=== PATIENT | female | born 1945 | race African-American/Black ===

== ENCOUNTER 2017-05-02 03:06 | Inpatient (IN) | payer MEDICARE, MEDICAID ==
[~2017-05-02] VITALS: Ht 167.6 cm; Wt 79.4 kg
[2017-05-02] VITALS (7 sets, daily range): BP systolic 109–141; BP diastolic 44–73
[2017-05-02] MEDS ORDERED: PREDNISOLO15 MG/5 M1 ORAL (03:19)
[2017-05-02] MEDS ORDERED: LUMIGAN2.5 ML BOTH EYES (03:19)
[2017-05-02] MEDS ORDERED: CYMBALTA30 MG ORAL (03:19)
[2017-05-02] MEDS ORDERED: ATORVASTATIN CA10 MG ORAL (03:19)
[2017-05-02] MEDS ORDERED: HYDROmorphone 1mg/ml Carpuject IVP ONE (03:45)
[2017-05-02 04:11] LABS: EOSINOPHILS % (AUTO) 1.5 % (0.0-3.0); HEMATOCRIT 43.9 % (37.0-47.0); LYMPHOCYTES % (AUTO) 23.9 % (20.0-45.0); MEAN CORPUSCULAR VOLUME 90 FL (80-99); MONOCYTES % (AUTO) 7.1 % (1.0-10.0); NEUTROPHILS % (AUTO) 66.5 % (45.0-75.0); PLATELET COUNT 315 K/UL (150-450); RED BLOOD COUNT 4.89 M/UL (4.20-5.40); RED CELL DISTRIBUTION WIDTH 13.2 % (11.6-14.8); WHITE BLOOD COUNT 7.6 K/UL (4.8-10.8)
[2017-05-02 04:28] LABS: ANION GAP 4 mmol/L (5-15); BLOOD UREA NITROGEN 16 mg/dL (7-18); CALCIUM 9.1 MG/DL (8.5-10.1); CARBON DIOXIDE 30 MMOL/L (21-32); CHLORIDE 107 MMOL/L (98-107); CREATININE 0.8 MG/DL (0.55-1.30); POTASSIUM 3.7 MMOL/L (3.5-5.1); SODIUM 141 MMOL/L (136-145)
[2017-05-02 04:48] LABS: ALANINE AMINOTRANSFERASE 25 U/L (12-78); ALBUMIN 3.2 G/DL (3.4-5.0); ALBUMIN/GLOBULIN RATIO 0.9 (1.0-2.7); ALKALINE PHOSPHATASE 101 U/L (46-116); ASPARTATE AMINO TRANSFERASE 12 U/L (15-37); BILIRUBIN,TOTAL 0.4 MG/DL (0.2-1.0); CKMB 1.6 NG/ML (0.0-3.6); CREATINE KINASE 73 U/L (26-308)
--- NOTE | 2017-05-02 05:02 | Emergency Room Report ---
History of Present Illness General Chief Complaint: Chest Pain Source: Patient Present Illness HPI This is a 71-year-old female with a history of degenerative disc disease in her lower back. She's taking hydrocodone. She presents with chief complaint of chest pain. Onset was about 3 hours prior to arrival. She was in bed when she got up and developed left-sided pain. No radiation. No diaphoresis. No nausea no vomiting. Pain is a 9/10. She called 911. No relief with nitroglycerin or aspirin. No exertional component. Allergies: Coded Allergies: ACETAMINOPHEN (Unverified Allergy, Unknown, 05/02/17) HYDROCODONE (Unverified Allergy, Unknown, 05/02/17) MORPHINE (Unverified Allergy, Unknown, 05/02/17) Patient History Past Medical History: see triage record, old chart reviewed, HTN Past Surgical History: other Pertinent Family History: none Social History: Denies: smoking Now: No Immunizations: other Reviewed Nursing Documentation: PMH: Agreed, PSxH: Agreed Nursing Documentation-PMH Past Medical History: No History, Except For Hx Hypertension: Yes Hx Asthma: Yes Review of Systems Eye: Denies: eye pain, blurred vision ENT: Denies: ear pain, nose congestion, throat swelling Respiratory: Denies: cough, shortness of breath Cardiovascular: Reports: chest pain, Denies: palpitations Gastrointestinal: Denies: abdominal pain, diarrhea, nausea, vomiting Musculoskeletal: Denies: back pain, joint pain Skin: Denies: rash Neurological: Denies: headache, numbness Endocrine: Denies: increased thirst, increased urine Hematologic/Lymphatic: Denies: easy bruising All Other Systems: negative except mentioned in HPI Physical Exam Vital Signs Date Time Temp Pulse Resp B/P (MAP) Pulse Ox O2 Delivery O2 Flow Rate FiO2 05/02/17 03:07 96.3 84 18 164/86 99 Room Air vitals with high blood pressure Sp02 EP Interpretation: reviewed, normal General Appearance: well appearing, no apparent distress, alert, obese Head: normocephalic, atraumatic Eyes: bilateral eye PERRL, bilateral eye EOMI ENT: hearing grossly normal, normal pharynx Neck: full range of motion, supple, no meningismus Respiratory: lungs clear, normal breath sounds, other - Pain is reproducible to palpation on the anterior chest Cardiovascular #1: regular rate, rhythm, no murmur Gastrointestinal: normal bowel sounds, non tender, no mass, no organomegaly, no bruit, non-distended Musculoskeletal: back normal, gait/station normal, normal range of motion Psychiatric: mood/affect normal Skin: warm/dry Medical Decision Making Diagnostic Impression: Primary Impression: Chest pain Qualified Codes: R07.9 - Chest pain, unspecified ER Course Patient with atypical chest pain. She does have multiple risk factors for CAD. She is obese, has high blood pressure, has hyperlipidemia, and family history. Will admit for further workup. EKG Diagnostic Results Rate: normal Rhythm: NSR ST Segments: no acute changes Rhythm Strip Diag. Results Rhythm Strip Time: 05:01 EP Interpretation: yes Rate: 66 Rhythm: NSR, no PVC's, no ectopy Chest X-Ray Diagnostic Results Chest X-Ray Diagnostic Results : Chest X-Ray Ordered: Yes # of Views/Limited/Complete: 1 View Indication: Chest Pain EP Interpretation: Yes Interpretation: no consolidation, no effusion, no pneumothorax, no acute cardiopulmonary disease Impression: No acute disease Electronically Signed by: Shane Glod MD Last Vital Signs Date Time Temp Pulse Resp B/P (MAP) Pulse Ox O2 Delivery O2 Flow Rate FiO2 05/02/17 04:45 96.3 65 12 109/44 97 Room Air Status: improved Disposition: ADMITTED INPATIENT Condition: Serious Referrals: NON PHYSICIAN (PCP) SHANE GOLD M.D. May 02, 2017 05:01
[2017-05-02] MEDS ORDERED: Ketorolac 30mg Inj IV ONE (05:15)
[2017-05-02] MEDS ORDERED: Miralax 17gm pkt ORAL PRN (05:30)
[2017-05-02] MEDS ORDERED: Albuterol/Ipratropium 3ml neb HHN PRN (05:30)
[2017-05-02] MEDS ORDERED: Nitroglycerin Subl 0.4mg tab SL PRN (05:30)
[2017-05-02] MEDS ORDERED: Enalaprilat 2.5mg/2ml Inj IV PRN (05:30)
[2017-05-02] MEDS ORDERED: dilTIAZem HCl 25mg/5ml Inj IV PRN (05:30)
[2017-05-02] MEDS ORDERED: Norco 5mg/325mg tab ORAL ONE (06:15)
--- NOTE | 2017-05-02 07:08 | Consultation ---
History of Present Illness General Date patient seen: May 02, 2017 Chief Complaint: Chest Pain Reason for Consultation: chest pain Present Illness HPI 71-year-old female with a history of degenerative disc disease in her lower back presented to ER with chief complaint of chest pain. Onset was about 3 hours prior to arrival. She was in bed when she got up and developed left- sided pain. No radiation. No diaphoresis. No nausea no vomiting. Pain is a 9 /10. She called 911. Her BP was high on presentation/ She is admitted to telemetry for further work up. Allergies: Coded Allergies: ACETAMINOPHEN (Unverified Allergy, Unknown, 05/02/17) HYDROCODONE (Unverified Allergy, Unknown, 05/02/17) MORPHINE (Unverified Allergy, Unknown, 05/02/17) Medication History Scheduled Atorvastatin Calcium* (Lipitor*), 10 MG ORAL BEDTIME, (Reported) Bimatoprost (Lumigan), 1 DROP BOTH EYES DAILY, (Reported) Duloxetine Hcl* (Cymbalta*), 30 MG ORAL DAILY, (Reported) Miscellaneous Medications Prednisolone* (Prelone*), 15 MG ORAL, (Reported) Patient History Healthcare decision maker Resuscitation status Advanced Directive on File Review of Systems All Other Systems: negative except mentioned in HPI Physical Exam Physical Exam Narrative General Appearance: WD/WN HEENT: normocephalic, anicteric Respiratory/Chest: chest wall non-tender, lungs clear, normal breath sounds Breasts: no masses Cardiovascular: normal peripheral pulses, regularly irregular Abdomen: normal bowel sounds, soft, non tender Genitourinary: normal external genitalia Skin: no rash Last 24 Hour Vital Signs Date Time Temp Pulse Resp B/P (MAP) Pulse Ox O2 Delivery O2 Flow Rate FiO2 05/02/17 06:27 97.5 78 16 141/73 100 Room Air 05/02/17 06:21 97.5 78 16 141/73 100 Room Air 05/02/17 04:45 96.3 65 12 109/44 97 Room Air 05/02/17 03:48 76 11 Room Air 05/02/17 03:48 96.3 76 11 134/63 99 Room Air 05/02/17 03:07 96.3 84 18 164/86 99 Room Air Intake and Output 05/01/17 05/02/17 19:00 07:00 Intake Total 0 ml Balance 0 ml Intake Oral 0 ml Laboratory Tests Test 05/02/17 03:39 White Blood Count 7.6 K/UL (4.8-10.8) Red Blood Count 4.89 M/UL (4.20-5.40) Hemoglobin 14.0 G/DL (12.0-16.0) Hematocrit 43.9 % (37.0-47.0) Mean Corpuscular Volume 90 FL (80-99) Mean Corpuscular Hemoglobin 28.6 PG (27.0-31.0) Mean Corpuscular Hemoglobin Concent 31.9 G/DL (32.0-36.0) L Red Cell Distribution Width 13.2 % (11.6-14.8) Platelet Count 315 K/UL (150-450) Mean Platelet Volume 6.8 FL (6.5-10.1) Neutrophils (%) (Auto) 66.5 % (45.0-75.0) Lymphocytes (%) (Auto) 23.9 % (20.0-45.0) Monocytes (%) (Auto) 7.1 % (1.0-10.0) Eosinophils (%) (Auto) 1.5 % (0.0-3.0) Basophils (%) (Auto) 1.0 % (0.0-2.0) Sodium Level 141 MMOL/L (136-145) Potassium Level 3.7 MMOL/L (3.5-5.1) Chloride Level 107 MMOL/L (98-107) Carbon Dioxide Level 30 MMOL/L (21-32) Anion Gap 4 mmol/L (5-15) L Blood Urea Nitrogen 16 mg/dL (7-18) Creatinine 0.8 MG/DL (0.55-1.30) Estimat Glomerular Filtration Rate > 60 mL/min (>60) Glucose Level 115 MG/DL (74-106) H Calcium Level 9.1 MG/DL (8.5-10.1) Total Bilirubin 0.4 MG/DL (0.2-1.0) Aspartate Amino Transf (AST/SGOT) 12 U/L (15-37) L Alanine Aminotransferase (ALT/SGPT) 25 U/L (12-78) Alkaline Phosphatase 101 U/L (46-116) Total Creatine Kinase 73 U/L (26-308) Creatine Kinase MB 1.6 NG/ML (0.0-3.6) Creatine Kinase MB Relative Index 2.1 Troponin I 0.000 ng/mL (0.000-0.056) Total Protein 6.8 G/DL (6.4-8.2) Albumin 3.2 G/DL (3.4-5.0) L Globulin 3.6 g/dL Albumin/Globulin Ratio 0.9 (1.0-2.7) L Height (Feet): 5 Height (Inches): 6.00 Weight (Pounds): 175 Medications Current Medications Medications (Trade) Dose Ordered Sig/Ernesto Route PRN Reason Start Time Stop Time Status Last Admin Dose Admin Acetaminophen (Tylenol) 650 mg Q4H PRN ORAL FEVER 05/02/17 05:30 06/01/17 05:29 UNV Acetaminophen/ Hydrocodone Bitart (Wayne 10/325) 1 tab Q4H PRN ORAL Severe Pain (Pain Scale 7-10) 05/02/17 05:30 05/09/17 05:29 UNV Albuterol/ Ipratropium (Albuterol/ Ipratropium) 3 ml Q4H PRN HHN Shortness of Breath 05/02/17 05:30 05/07/17 05:29 Aspirin (ASA) 162 mg DAILY ORAL 05/02/17 09:00 06/01/17 08:59 Atorvastatin Calcium (Lipitor) 10 mg BEDTIME ORAL 05/02/17 21:00 06/01/17 20:59 Carisoprodol (Soma) 350 mg EVERY 8 HOURS PRN ORAL back pain 05/02/17 05:30 06/01/17 05:29 Diltiazem HCl (Cardizem) 10 mg Q1H PRN IV heart rate more than 120, 05/02/17 05:30 06/01/17 05:29 Duloxetine HCl (Cymbalta) 30 mg DAILY ORAL 05/02/17 09:00 06/01/17 08:59 Enalaprilat (Vasotec) 2.5 mg Q6H PRN IV sbp more than 160 05/02/17 05:30 06/01/17 05:29 Heparin Sodium (Porcine) (Heparin 5000 units/ml) 5,000 units EVERY 12 HOURS SUBQ 05/02/17 09:00 06/01/17 08:59 Ketorolac Tromethamine (Toradol 30mg) 30 mg Q6HR PRN IV moderate pain ( 4-6) 05/02/17 05:30 05/07/17 05:29 UNV Nitroglycerin (Ntg) 0.4 mg Q5M PRN SL Prn Chest Pain 05/02/17 05:30 06/01/17 05:29 Ondansetron HCl (Zofran) 4 mg Q6H PRN IVP Nausea & Vomiting 05/02/17 05:30 06/01/17 05:29 Polyethylene Glycol (Miralax) 17 gm DAILYPRN PRN ORAL Constipation 05/02/17 05:30 06/01/17 05:29 Temazepam (Restoril) 15 mg HSPRN PRN ORAL Insomnia 05/02/17 05:30 05/09/17 05:29 Assessment/Plan Problem List: (1) Chest pain ICD Codes: R07.9 - Chest pain, unspecified SNOMED: 17111491 Qualifiers: Qualified Codes: R07.9 - Chest pain, unspecified (2) Degenerative disc disease SNOMED: 20486238 Assessment/Plan serial ekg, troponin, echo symptomatic treatment cardio to see monitor BP pain control AURELIA MEIER May 02, 2017 07:08
[2017-05-02] MEDS ORDERED: Ciprofloxacin Opth Soln 2.5ml LEFT EYE SCH (09:00)
[2017-05-02] MEDS ORDERED: Aspirin Baby 81mg ORAL SCH (09:00)
[2017-05-02] MEDS ORDERED: Ketorolac Tromethamine Opth 5ml Soln LEFT EYE SCH (09:00)
[2017-05-02] MEDS: DULoxetine 30mg cap ORAL SCH (09:19)
[2017-05-02] MEDS: Heparin 5000 units/ml inj SUBQ SCH ×2 (09:20→20:39)
[2017-05-02] MEDS ORDERED: Lisinopril 20mg tab ORAL SCH (10:00)
[2017-05-02] MEDS ORDERED: HYDROcodone/Acetamin 10/325 tab ORAL PRN (10:00)
[2017-05-02] MEDS ORDERED: Ketorolac 30mg Inj IV PRN (10:00)
[2017-05-02] MEDS ORDERED: AZOPT 1% BOTH EYES SCH (11:00)
[2017-05-02] MEDS: Vitamin D 1000 IU Tab ORAL SCH (12:05)
[2017-05-02] MEDS: Ascorbic Acid 500mg tab ORAL SCH (12:05)
--- NOTE | 2017-05-02 12:08 | Diagnostic Imaging Report ---
Indication: Pain Technique: XRAY Chest 1v Comparison: 02/13/2006 Findings: Heart is enlarged but stable. There is no focal airspace consolidation, pleural effusion or pneumothorax. There is degenerative change of the spine. No acute osseous abnormality appreciated. Degenerative change of the right AC joint also noted. Impression: No radiographic evidence of acute cardiopulmonary disease. Stable cardiomegaly.
[2017-05-02] MEDS: CIPROFLOXACIN HCL 0.3% OPHTHALM SCH ×3 (12:21→20:37)
[2017-05-02] MEDS: KETOROLAC OPTH OPHTHALM SCH ×3 (12:21→20:37)
[2017-05-02] MEDS: Calcium Carbonate 650mg Tab ORAL SCH (12:45)
--- NOTE | 2017-05-02 13:20 | Cardiology Progress Note ---
Assessment/Plan Assessment/Plan The patient is seen and examined, full consult note is dictated. Objective Last 24 Hour Vital Signs Date Time Temp Pulse Resp B/P (MAP) Pulse Ox O2 Delivery O2 Flow Rate FiO2 05/02/17 12:05 128/60 05/02/17 12:00 74 05/02/17 12:00 98.6 65 20 128/60 98 05/02/17 08:00 83 05/02/17 08:00 97.3 70 18 117/51 95 Room Air 05/02/17 07:52 65 18 Room Air 21 05/02/17 06:27 97.5 78 16 141/73 100 Room Air 05/02/17 06:21 97.5 78 16 141/73 100 Room Air 05/02/17 04:45 96.3 65 12 109/44 97 Room Air 05/02/17 03:48 76 11 Room Air 05/02/17 03:48 96.3 76 11 134/63 99 Room Air 05/02/17 03:07 96.3 84 18 164/86 99 Room Air Intake and Output 05/01/17 05/02/17 19:00 07:00 Intake Total 0 ml Balance 0 ml Intake Oral 0 ml Laboratory Tests Test 05/02/17 03:39 05/02/17 08:30 White Blood Count 7.6 K/UL (4.8-10.8) Red Blood Count 4.89 M/UL (4.20-5.40) Hemoglobin 14.0 G/DL (12.0-16.0) Hematocrit 43.9 % (37.0-47.0) Mean Corpuscular Volume 90 FL (80-99) Mean Corpuscular Hemoglobin 28.6 PG (27.0-31.0) Mean Corpuscular Hemoglobin Concent 31.9 G/DL (32.0-36.0) L Red Cell Distribution Width 13.2 % (11.6-14.8) Platelet Count 315 K/UL (150-450) Mean Platelet Volume 6.8 FL (6.5-10.1) Neutrophils (%) (Auto) 66.5 % (45.0-75.0) Lymphocytes (%) (Auto) 23.9 % (20.0-45.0) Monocytes (%) (Auto) 7.1 % (1.0-10.0) Eosinophils (%) (Auto) 1.5 % (0.0-3.0) Basophils (%) (Auto) 1.0 % (0.0-2.0) Sodium Level 141 MMOL/L (136-145) Potassium Level 3.7 MMOL/L (3.5-5.1) Chloride Level 107 MMOL/L (98-107) Carbon Dioxide Level 30 MMOL/L (21-32) Anion Gap 4 mmol/L (5-15) L Blood Urea Nitrogen 16 mg/dL (7-18) Creatinine 0.8 MG/DL (0.55-1.30) Estimat Glomerular Filtration Rate > 60 mL/min (>60) Glucose Level 115 MG/DL (74-106) H Calcium Level 9.1 MG/DL (8.5-10.1) Total Bilirubin 0.4 MG/DL (0.2-1.0) Aspartate Amino Transf (AST/SGOT) 12 U/L (15-37) L Alanine Aminotransferase (ALT/SGPT) 25 U/L (12-78) Alkaline Phosphatase 101 U/L (46-116) Total Creatine Kinase 73 U/L (26-308) Creatine Kinase MB 1.6 NG/ML (0.0-3.6) Creatine Kinase MB Relative Index 2.1 Troponin I 0.000 ng/mL (0.000-0.056) 0.000 ng/mL (0.000-0.056) Total Protein 6.8 G/DL (6.4-8.2) Albumin 3.2 G/DL (3.4-5.0) L Globulin 3.6 g/dL Albumin/Globulin Ratio 0.9 (1.0-2.7) L RODERICK NASH May 02, 2017 13:20
--- NOTE | 2017-05-02 17:30 | History and Physical Report ---
DATE OF ADMISSION: 05/02/2017 TIME SEEN: 9 a.m. CONSULTANTS: 1. Marcella Ang M.D. 2. Marcus Coronado M.D. CHIEF COMPLAINT: Chest pain. BRIEF HISTORY: A 71-year-old female, who lives at home, presented with substernal chest pain, sharp. No radiation. No loss of consciousness. It lasts about 20 minutes. No dizziness. The patient came to the [facility], diagnosed with the above, and admitted to [facility] for further care. Currently, feeling better, slightly chest pain, no complaint. PAST MEDICAL HISTORY: Hypertension. PAST SURGICAL HISTORY: Hysterectomy, , bilateral tubal ligation, gallbladder, and abdominal hernia. MEDICATIONS: Include Lipitor, Cymbalta, aspirin, heparin, Ciloxan, Acular, albuterol, nitroglycerin, Tylenol, and ketorolac. ALLERGIES: Tylenol, morphine, and hydrocodone. SOCIAL HISTORY: No smoking. No alcohol. No intravenous drug abuse. FAMILY HISTORY: Noncontributory. REVIEW OF SYSTEMS: Slight chest pain. Slight shortness of breath. No nausea, vomiting, or diarrhea. PHYSICAL EXAMINATION: GENERAL: Slightly anxious in bed, oriented x3, and in no acute distress. VITAL SIGNS: Show temperature is 97, pulse 70, respirations 18, and blood pressure 117/51. CARDIOVASCULAR: No murmurs. LUNGS: Distant and clear. ABDOMEN: Bowel sounds positive. Nontender. Nondistended. EXTREMITIES: No cyanosis, clubbing, or edema. NEUROLOGIC: The patient moves all extremities. Slightly weak. LABORATORY DATA: Glucose 115, AST 12, troponin 0.00, albumin 3.2, otherwise normal. ASSESSMENT: 1. Chest pain. 2. Hypertension. PLAN: 1. Pain control. 2. O2 and pulmonary treatment as needed. 3. Troponin q.8 hours x3. 4. Blood pressure control. 5. Resume home medications. 6. CBC and BMP in the morning. 7. Dr. Ang and Dr. Coronado to consult. Leroy Serrano D.O. DR: TENZIN JOB#: [id number] CC:
[2017-05-02] MEDS: Lisinopril 20mg tab ORAL SCH (20:36)
[2017-05-02] MEDS: AZOPT 1% BOTH EYES SCH (20:37)
[2017-05-02] MEDS ORDERED: LUMIGAN OPTH BOTH EYES SCH (21:00)
--- NOTE | 2017-05-02 21:00 | Consultation ---
DATE OF CONSULTATION: 05/02/2017 CARDIOLOGY CONSULTATION CONSULTING PHYSICIAN: Marcus Coronado M.D. REFERRING PHYSICIAN: Leroy Serrano D.O. REASON FOR CONSULTATION: Management of chest pain. HISTORY OF PRESENT ILLNESS: The patient is a very pleasant 71-year-old female who presents to the hospital with chief complaint of chest pain. Chest pain is described as constant, occurred two or three hours before she arrived to the emergency department today. She states that whenever she takes a deep breath the pain is worse but that does not happen on every breath in. She denies any associated shortness of breath, nausea, vomiting or diaphoresis. At the time of arrival to the hospital, pain was 9/10. There was no relief with nitroglycerin or aspirin. The patient denies any recent change in exercise tolerance or new onset dyspnea on exertion. She states that she is followed regularly by her primary care physician at [facility]. She had a stress test done within the past year and was negative. Her risk factors are coronary artery disease includes hypertension. She claims that she used to take Lipitor for dyslipidemia but she is not currently on that medication. PAST MEDICAL HISTORY: 1. Hypertension. 2. History of lumbar disk disease currently, on physical therapy. 3. History of left knee osteoarthritis. ALLERGIES: Acetaminophen, hydrocodone, and morphine. MEDICATIONS: List of medications at home includin. Atorvastatin 10 mg p.o. at bedtime. 2. She claims that she does not take any statins. 3. Lumigan eye drop using for both eyes on a daily basis. 4. Cymbalta 30 mg p.o. daily. 5. Prednisolone . FAMILY HISTORY: No premature coronary artery disease in first-degree relatives. SOCIAL HISTORY: No history of tobacco, alcohol, or illicit drug use. REVIEW OF SYSTEMS: HEENT: Denies any headache, diplopia, or blurred vision. CONSTITUTIONAL: Denies any fever, chills, night sweats, or weight loss. CARDIOVASCULAR: Chest pain as mentioned above. Denies any shortness of breath. Denies any dyspnea on exertion, leg edema, PND, or orthopnea. He denies any prior history of palpitations or syncope. PULMONARY: Denies any cough, hemoptysis, or wheezing. GASTROINTESTINAL: Denies any nausea, vomiting, diarrhea, constipation, abdominal pain, or GI bleed. GENITOURINARY: Denies any hematuria, dysuria, or incontinence. NEUROLOGY: Denies any motor dysfunction, sensory deficit, or altered speech. MUSCULOSKELETAL: Complains of low back pain as well as left knee pain. PHYSICAL EXAMINATION: VITAL SIGNS: Blood pressure at time of arrival to the hospital was 164/86, pulse of 84, respirations 18, pulse oximetry of 99% on room air, and temperature 96.3 degrees Fahrenheit. GENERAL: The patient is a very pleasant 71-year-old lady, in no apparent respiratory distress. Alert and oriented x4. HEENT: Atraumatic and normocephalic. Anicteric. Pupils are equal, round, and reactive to light and accommodation. Extraocular muscles intact. NECK: JVP less than 5 centimeter. No carotid bruit. CVS: Normal S1 and S2, regular rate and rhythm. No murmurs, gallops, or rubs. PMI is at fourth intercostal space at the midclavicular line. LUNGS: Clear to auscultation bilaterally. EXTREMITIES: No evidence of edema, clubbing, or cyanosis. LABORATORY FINDINGS: Sodium 141, potassium 3.7, chloride 107, bicarbonate 30, BUN of 16, creatinine 0.8, glucose 115. Calcium is 9.1. Troponin-I x2 negative. WBC 7.6, hemoglobin 14.0, hematocrit of 43.9, and platelet count 315. Chest x-ray shows no evidence of acute cardiopulmonary disease with stable cardiomegaly. ASSESSMENT AND PLAN: The patient is a very unfortunate 71-year-old lady seen in Cardiology consultation at the request of Dr. Serrano. 1. Chest pain. It appears to be pleuritic in nature based on the history. A 12-lead electrocardiogram at the time of arrival to the ED shows sinus rhythm with no ST and T-wave abnormality. We will like to obtain 2D echocardiography for assessment of systolic function and LV wall motion. Further therapeutic and diagnostic decision will be based on results of echocardiography. Of note, acute myocardial infarction is ruled out by two negative troponin I levels. 2. History of hypertension, currently stage 2. I would continue lisinopril at this time. May have to adjust the dose of lisinopril based on the response. Her blood pressure at time of arrival to the hospital was stage III. I would increase the lisinopril to 20 mg twice daily. 3. Obesity. 4. Low back pain due to lumbar disk disease on physical therapy. 5. Left knee pain on physical therapy. I would like to thank, Dr. Serrano, for courtesy of this consultation. Marcus Coronado M.D. DR: Yaneth JOB#: [id number] CC:
[2017-05-03] VITALS: BP 117/50
[2017-05-03 04:00] VITALS: BP 132/67
[2017-05-03 05:48] LABS: BASOPHILS % (AUTO) 0.9 % (0.0-2.0); EOSINOPHILS % (AUTO) 1.9 % (0.0-3.0); HEMATOCRIT 42.8 % (37.0-47.0); HEMOGLOBIN 13.7 G/DL (12.0-16.0); LYMPHOCYTES % (AUTO) 30.1 % (20.0-45.0); MEAN CORPUSCULAR VOLUME 90 FL (80-99); MONOCYTES % (AUTO) 7.3 % (1.0-10.0); NEUTROPHILS % (AUTO) 59.9 % (45.0-75.0); PLATELET COUNT 300 K/UL (150-450); RED BLOOD COUNT 4.74 M/UL (4.20-5.40); RED CELL DISTRIBUTION WIDTH 12.9 % (11.6-14.8); WHITE BLOOD COUNT 6.6 K/UL (4.8-10.8)
[2017-05-03 05:59] LABS: INR 0.9 (0.9-1.1)
[2017-05-03 06:09] LABS: ANION GAP 4 mmol/L (5-15); BLOOD UREA NITROGEN 9 mg/dL (7-18); CALCIUM 8.9 MG/DL (8.5-10.1); CARBON DIOXIDE 30 MMOL/L (21-32); CHLORIDE 108 MMOL/L (98-107); CREATININE 0.6 MG/DL (0.55-1.30); POTASSIUM 4.3 MMOL/L (3.5-5.1); SODIUM 142 MMOL/L (136-145)
[2017-05-03 06:21] LABS: CHOLESTEROL 146 MG/DL (< 200); HDL CHOLESTEROL 58 MG/DL (40-60); TRIGLYCERIDES 95 MG/DL (30-150)
--- NOTE | 2017-05-03 07:58 | General Progress Note ---
Assessment/Plan Problem List: (1) Degenerative disc disease SNOMED: 05486723 (2) Chest pain ICD Codes: R07.9 - Chest pain, unspecified SNOMED: 53389542 Qualifiers: Qualified Codes: R07.9 - Chest pain, unspecified Status: stable, progressing, tolerating diet Assessment/Plan bp pain control cbc bmp am dc plan w hh Subjective Constitutional: Reports: weakness Allergies: Coded Allergies: MORPHINE (Verified Allergy, Unknown, 05/02/17) All Systems: reviewed and negative except above Subjective sleepy calm Objective Last 24 Hour Vital Signs Date Time Temp Pulse Resp B/P (MAP) Pulse Ox O2 Delivery O2 Flow Rate FiO2 05/03/17 04:00 97.7 79 20 132/67 98 05/03/17 04:00 66 05/03/17 00:00 97.9 71 20 117/50 05/02/17 20:36 114/53 05/02/17 20:03 97.5 73 17 114/53 98 05/02/17 20:00 72 05/02/17 19:00 72 20 Room Air 21 05/02/17 16:00 69 05/02/17 16:00 97.7 76 20 121/49 98 05/02/17 12:05 128/60 05/02/17 12:00 74 05/02/17 12:00 98.6 65 20 128/60 98 05/02/17 08:00 83 05/02/17 08:00 97.3 70 18 117/51 95 Room Air Intake and Output 05/02/17 05/03/17 19:00 07:00 Intake Total 1000 ml Balance 1000 ml Intake Oral 1000 ml # Voids 3 1 Laboratory Tests 05/02/17 08:30: D-Dimer 0.32, Troponin I 0.000 05/03/17 04:45: Troponin I 0.000, White Blood Count 6.6, Red Blood Count 4.74, Hemoglobin 13.7, Hematocrit 42.8, Mean Corpuscular Volume 90, Mean Corpuscular Hemoglobin 28.9, Mean Corpuscular Hemoglobin Concent 32.0, Red Cell Distribution Width 12.9, Platelet Count 300, Mean Platelet Volume 7.0, Neutrophils (%) (Auto) 59.9, Lymphocytes (%) (Auto) 30.1, Monocytes (%) (Auto) 7.3, Eosinophils (%) (Auto) 1.9, Basophils (%) (Auto) 0.9, Prothrombin Time 9.6, Prothromb Time International Ratio 0.9, Activated Partial Thromboplast Time 25, Sodium Level 142, Potassium Level 4.3, Chloride Level 108H, Carbon Dioxide Level 30, Anion Gap 4L, Blood Urea Nitrogen 9, Creatinine 0.6, Estimat Glomerular Filtration Rate > 60, Glucose Level 102, Calcium Level 8.9, C-Reactive Protein, Quantitative < 0.4, Triglycerides Level 95, Cholesterol Level 146, LDL Cholesterol 75, HDL Cholesterol 58, Cholesterol/HDL Ratio 2.5L, Thyroid Stimulating Hormone (TSH) 0.749 Height (Feet): 5 Height (Inches): 6.00 Weight (Pounds): 175 General Appearance: lethargic EENT: normal ENT inspection Neck: normal alignment Cardiovascular: normal peripheral pulses, normal rate, regular rhythm Respiratory/Chest: chest wall non-tender, lungs clear, normal breath sounds Abdomen: normal bowel sounds, non tender, soft Extremities: normal inspection Edema: no edema noted Arm (L), no edema noted Arm (R), no edema noted Leg (L), no edema noted Leg (R), no edema noted Pedal (L), no edema noted Pedal (R), no edema noted Generalized Neurologic: responsive, motor weakness Skin: normal pigmentation, warm/dry GISSELLE HORTON May 03, 2017 07:58
[2017-05-03 08:00] VITALS: BP 106/76
--- NOTE | 2017-05-03 08:28 | Pulmonology Progress Note ---
Assessment/Plan Problems: (1) Chest pain (2) Degenerative disc disease Assessment/Plan echo reviewed symptomatic treatment all notes reviewed Subjective Constitutional: Reports: no symptoms HEENT: Repors: no symptoms Respiratory: Reports: no symptoms Allergies: Coded Allergies: MORPHINE (Verified Allergy, Unknown, 05/02/17) Objective Last 24 Hour Vital Signs Date Time Temp Pulse Resp B/P (MAP) Pulse Ox O2 Delivery O2 Flow Rate FiO2 05/03/17 07:44 70 18 Room Air 21 05/03/17 04:00 97.7 79 20 132/67 98 05/03/17 04:00 66 05/03/17 00:00 97.9 71 20 117/50 05/02/17 20:36 114/53 05/02/17 20:03 97.5 73 17 114/53 98 05/02/17 20:00 72 05/02/17 19:00 72 20 Room Air 21 05/02/17 16:00 69 05/02/17 16:00 97.7 76 20 121/49 98 05/02/17 12:05 128/60 05/02/17 12:00 74 05/02/17 12:00 98.6 65 20 128/60 98 Intake and Output 05/02/17 05/03/17 19:00 07:00 Intake Total 1000 ml Balance 1000 ml Intake Oral 1000 ml # Voids 3 1 Objective General Appearance: WD/WN HEENT: normocephalic, anicteric Respiratory/Chest: chest wall non-tender, lungs clear, normal breath sounds Breasts: no masses Cardiovascular: normal peripheral pulses, regularly irregular Abdomen: normal bowel sounds, soft, non tender Genitourinary: normal external genitalia Skin: no rash Laboratory Tests 05/02/17 08:30: D-Dimer 0.32, Troponin I 0.000 05/03/17 04:45: Troponin I 0.000, White Blood Count 6.6, Red Blood Count 4.74, Hemoglobin 13.7, Hematocrit 42.8, Mean Corpuscular Volume 90, Mean Corpuscular Hemoglobin 28.9, Mean Corpuscular Hemoglobin Concent 32.0, Red Cell Distribution Width 12.9, Platelet Count 300, Mean Platelet Volume 7.0, Neutrophils (%) (Auto) 59.9, Lymphocytes (%) (Auto) 30.1, Monocytes (%) (Auto) 7.3, Eosinophils (%) (Auto) 1.9, Basophils (%) (Auto) 0.9, Prothrombin Time 9.6, Prothromb Time International Ratio 0.9, Activated Partial Thromboplast Time 25, Sodium Level 142, Potassium Level 4.3, Chloride Level 108H, Carbon Dioxide Level 30, Anion Gap 4L, Blood Urea Nitrogen 9, Creatinine 0.6, Estimat Glomerular Filtration Rate > 60, Glucose Level 102, Calcium Level 8.9, C-Reactive Protein, Quantitative < 0.4, Triglycerides Level 95, Cholesterol Level 146, LDL Cholesterol 75, HDL Cholesterol 58, Cholesterol/HDL Ratio 2.5L, Thyroid Stimulating Hormone (TSH) 0.749 Current Medications Medications (Trade) Dose Ordered Sig/Ernesto Route PRN Reason Start Time Stop Time Status Last Admin Dose Admin Acetaminophen (Tylenol) 650 mg Q4H PRN ORAL FEVER 05/02/17 10:00 06/01/17 09:59 Acetaminophen/ Hydrocodone Bitart ([place] 10/325) 1 tab Q4H PRN ORAL Severe Pain (Pain Scale 7-10) 05/02/17 10:00 05/09/17 09:59 05/02/17 12:06 Albuterol/ Ipratropium (Albuterol/ Ipratropium) 3 ml Q4H PRN HHN Shortness of Breath 05/02/17 05:30 05/07/17 05:29 Ascorbic Acid (Vitamin C) 500 mg DAILY ORAL 05/02/17 10:00 06/01/17 09:59 05/02/17 12:05 Aspirin (ASA) 81 mg DAILY ORAL 05/03/17 09:00 06/02/17 08:59 Atorvastatin Calcium (Lipitor) 10 mg BEDTIME ORAL 05/02/17 21:00 06/01/17 20:59 05/02/17 20:31 Calcium Carbonate (Calcium Carbonate) 650 mg DAILY ORAL 05/02/17 11:00 06/01/17 10:59 05/02/17 12:45 Carisoprodol (Soma) 350 mg EVERY 8 HOURS PRN ORAL back pain 05/02/17 05:30 06/01/17 05:29 Diltiazem HCl (Cardizem) 10 mg Q1H PRN IV heart rate more than 120, 05/02/17 05:30 06/01/17 05:29 Duloxetine HCl (Cymbalta) 30 mg DAILY ORAL 05/02/17 09:00 06/01/17 08:59 05/02/17 09:19 Enalaprilat (Vasotec) 2.5 mg Q6H PRN IV sbp more than 160 05/02/17 05:30 06/01/17 05:29 Heparin Sodium (Porcine) (Heparin 5000 units/ml) 5,000 units EVERY 12 HOURS SUBQ 05/02/17 09:00 06/01/17 08:59 05/02/17 20:39 Ketorolac Tromethamine (Toradol 30mg) 30 mg Q6HR PRN IV moderate pain ( 4-6) 05/02/17 10:00 05/07/17 09:59 Lisinopril (Prinivil) 20 mg Q12HR ORAL 05/02/17 21:00 06/01/17 20:59 05/02/17 20:36 Multivitamins (Multivitamins) 1 tab DAILY ORAL 05/02/17 10:00 06/01/17 09:59 05/02/17 12:05 Nitroglycerin (Ntg) 0.4 mg Q5M PRN SL Prn Chest Pain 05/02/17 05:30 06/01/17 05:29 Ondansetron HCl (Zofran) 4 mg Q6H PRN IVP Nausea & Vomiting 05/02/17 05:30 06/01/17 05:29 Patient Own Medication (Patient's Own Med) 1 ea BEDTIME BOTH EYES 05/02/17 21:00 06/01/17 20:59 05/02/17 20:37 Patient Own Medication (Patient's Own Med) 1 ea BID BOTH EYES 05/02/17 21:00 06/01/17 20:59 05/02/17 20:37 Patient Own Medication (Patient's Own Med) 1 ea TID OPHTHALM 05/02/17 21:00 06/01/17 20:59 05/02/17 20:37 Patient Own Medication (Patient's Own Med) 1 ea TID OPHTHALM 05/02/17 21:00 06/01/17 20:59 05/02/17 20:37 Polyethylene Glycol (Miralax) 17 gm DAILYPRN PRN ORAL Constipation 05/02/17 05:30 06/01/17 05:29 Temazepam (Restoril) 15 mg HSPRN PRN ORAL Insomnia 05/02/17 05:30 05/09/17 05:29 Vitamin D (Vitamin D) 1,000 intlu DAILY ORAL 05/02/17 10:00 06/01/17 09:59 05/02/17 12:05 AURELIA MEIER May 03, 2017 08:28
[2017-05-03] MEDS: Lisinopril 20mg tab ORAL SCH (09:00)
[2017-05-03] MEDS ORDERED: Aspirin Baby 81mg ORAL SCH (09:00)
[2017-05-03] MEDS: KETOROLAC OPTH OPHTHALM SCH ×2 (09:15→13:34)
[2017-05-03] MEDS: AZOPT 1% BOTH EYES SCH (09:15)
[2017-05-03] MEDS: Calcium Carbonate 650mg Tab ORAL SCH (09:16)
[2017-05-03] MEDS: DULoxetine 30mg cap ORAL SCH (09:16)
[2017-05-03] MEDS: CIPROFLOXACIN HCL 0.3% OPHTHALM SCH ×2 (09:16→13:35)
[2017-05-03] MEDS: Vitamin D 1000 IU Tab ORAL SCH (09:16)
[2017-05-03] MEDS: Ascorbic Acid 500mg tab ORAL SCH (09:16)
[2017-05-03] MEDS: Heparin 5000 units/ml inj SUBQ SCH (09:19)
[2017-05-03 12:00] VITALS: BP 110/51
[2017-05-03] MEDS ORDERED: dilTIAZem HCl 25mg/5ml Inj IV PRN (14:30)
[2017-05-03] MEDS ORDERED: Nitroglycerin Subl 0.4mg tab SL PRN (14:30)
[2017-05-03] MEDS ORDERED: Miralax 17gm pkt ORAL PRN (15:00)
[2017-05-03] MEDS ORDERED: Enalaprilat 2.5mg/2ml Inj IV PRN (15:00)
[2017-05-03] MEDS ORDERED: Albuterol/Ipratropium 3ml neb HHN PRN (15:00)
[2017-05-03] MEDS ORDERED: Ketorolac 30mg Inj IV PRN (15:00)
[2017-05-03] MEDS ORDERED: HYDROcodone/Acetamin 10/325 tab ORAL PRN (15:00)
[2017-05-03 16:00] VITALS: BP 120/59
[2017-05-03] MEDS ORDERED: Heparin 5000 units/ml inj SUBQ SCH (21:00)
[2017-05-03] MEDS ORDERED: Lisinopril 20mg tab ORAL SCH (21:00)
[2017-05-04] MEDS ORDERED: Vitamin D 1000 IU Tab ORAL SCH (09:00)
[2017-05-04] MEDS ORDERED: Ascorbic Acid 500mg tab ORAL SCH (09:00)
[2017-05-04] MEDS ORDERED: DULoxetine 30mg cap ORAL SCH (09:00)
[2017-05-04] MEDS ORDERED: Aspirin Baby 81mg ORAL SCH (09:00)
[2017-05-04] MEDS ORDERED: Calcium Carbonate 650mg Tab ORAL SCH (09:00)
--- NOTE | 2017-05-04 18:31 | Cardiology Report ---
APPROVED REPORT EXAM: Two-dimensional and M-mode echocardiogram with Doppler and color Doppler. INDICATION Left ventricular function M-Mode DIMENSIONS IVSd1.0 (0.7-1.1cm)Left Atrium (MM)4.3 (1.6-4.0cm) LVDd4.8 (3.5-5.6cm)Aortic Root2.9 (2.0-3.7cm) PWd1.3 (0.7-1.1cm)Aortic Cusp Exc.1.9 (1.5-2.0cm) LVDs2.9 (2.5-4.0cm) PWs1.7 cm Normal left ventricular chamber size, systolic function and wall motion. Left ventricular ejection fraction estimated to be 60-65%. Mild left ventricular hypertrophy. No evidence of pericardial or pleural effusion. Mild bi-atrial enlargement by 2D. Focal aortic valve sclerosis with adequate cusp excursion. Thickened mitral valve leaflets with normal excursion. Mild mitral annulus and aortic root calcification. Pulmonic valve not well visualized. Normal tricuspid valve structure. IVC is normal in size and collapsible with respiration. A color flow and spectral Doppler study was performed and revealed: No aortic regurgitation. No mitral regurgitation. Mitral diastolic velocities suggest reduced left ventricular relaxation c/w diastolic dysfunction grade 1. Trace tricuspid regurgitation. Tricuspid systolic velocities suggests peak right ventricular systolic pressure of 27mmHg
--- NOTE | 2017-05-05 09:26 | Discharge Summary ---
Discharge Summary Hospital Course Date of Admission May 02, 2017 at 03:56 Date of Discharge May 03, 2017 at 18:30 Admitting Diagnosis chest pain HPI Berlin Hernandez is a 71 year old female who was admitted on May 02, 2017 at 03: 56 for Chest Pain Hospital Course dc summary #[id number] Discharge Condition Upon Discharge: stable Discharge Disposition Patient was discharged to Home with Home Health(06) Discharge Diagnoses: Discharge Instructions Discharge Instructions Special Instructions I have been assigned to complete a D/C Summary on this account. I was not involved in the patient management Jessica Turner NP (Vanchtein) May 05, 2017 09:26
--- NOTE | 2017-05-07 15:45 | Discharge Summary 2 SIG ---
DATE OF ADMISSION: 05/02/2017 DATE OF DISCHARGE: 05/03/2017 REASON FOR ADMISSION: 71-year-old female with a history of hypertension, lumbar disk disease, left knee osteoarthritis, and hyperlipidemia presented to emergency department from home with complaint of chest pain with onset about three hours prior to arrival. The patient was in the bed when she developed left-sided pain without radiation or diaphoresis. No nausea. No vomiting. The patient called paramedics, aspirin and nitroglycerin were given without relief. No exertional component per history. In the emergency department, troponin was negative. Vital signs was stable except blood pressure which was elevated -164/86, pulse oximetry was stable on room air. Chest x-ray revealed no acute cardiopulmonary pathology. EKG revealed normal sinus rhythm, no acute ischemic changes. The patient was admitted with chest pain due to the multiple risk factors for coronary artery disease. HOSPITAL COURSE: The patient admitted to telemetry floor. Cardiology and Pulmonology consults were requested. Front End Loader Operator seen and evaluated the patient. According to animal taxonomist, chest pain appeared to be pleuritic in nature based on the history. EKG showed sinus rhythm without any ST or T-wave abnormality. 2D echo revealed preserved ejection fraction of 50% to 55%, right ventricular systolic pressure of 27. The patient had a stress test within a year, which was negative. However, she had risk factors for coronary artery disease including obesity and hypertension. Blood pressure was elevated upon admission, stage III. Front End Loader Operator uptitrated lisinopril. Patient started on Aspirin and Nitroglycerin was prescribed as needed. Pain management provided. Bowel regimen instituted. DVT and gastrointestinal prophylaxis provided. The patient worked with physical therapists. Respiratory status was stable. Pulse oximetry was stable on room air. No signs of respiratory distress. Lipid panel was stable. The patient stated that currently she was off statin, but before was taken it. Chest pain resolved. Patietn clinically improved. The patient was stable for discharge. Due to the rapid and unexpected improvement in the patient's condition, the patient was discharged in one day. FINAL DIAGNOSES: 1. Atypical chest pain, possibly pleuritic in nature. 2. Hypertension, stage II. 3. Obesity. 4. Low back pain secondary to lumbar disk disease. 5. Left knee pain secondary to osteoarthritis. DISPOSITION: The patient discharged home with home health services. DISCHARGE INSTRUCTIONS: The patient to follow up with the primary care provider next week. Leroy Serrano D.O. I have been assigned to dictate discharge summary on this account and I was not involved in the patient's management. Jessica Turner N.P. (Vanchtein) DR: ARIA JOB#: [id number] CC: FERNANDA
--- NOTE | 2017-05-11 13:55 | Cardiology Report ---
APPROVED REPORT EKG Measurement Heart [id number] Normal sinus rhythm Normal ECG
== END 2017-05-03 18:30 | disposition home health service (06) | DRG 204 ==
LOC: EDBD 03:06 → EDUNIT# 03:06 → EMR 03:50 → 2E 03:56 → EDBEDREQ 05:39 → 2E 07:33 → 3E 05-03 14:15
DX: R07.81 Pleurodynia (principal); I10 Essential (primary) hypertension; I25.10 Atherosclerotic heart disease of native coronary artery without angina pectoris; M51.36 Other intervertebral disc degeneration, lumbar region; M17.12 Unilateral primary osteoarthritis, left knee; Z88.6 Allergy status to analgesic agent; E66.9 Obesity, unspecified; E78.5 Hyperlipidemia, unspecified; Z82.49 Family history of ischemic heart disease and other diseases of the circulatory system; J45.909 Unspecified asthma, uncomplicated
CPT/HCPCS: 36415; 71045; 80048; 80053; 80061; 82550; 82553; 84443; 84484; 85025; 85379; 85610; 85730; 86140; 93005; 93306; 94664; 99285; J2405

== ENCOUNTER 2018-02-01 11:41 | Inpatient (IN) | payer MEDICARE, MEDICAID ==
[~2018-02-01] VITALS: Ht 167.6 cm; Wt 115.7 kg
[~2018-02-01 11:41] MED LIST: ATORVASTATIN CA10 MG ORAL; CYMBALTA30 MG ORAL; LUMIGAN2.5 ML BOTH EYES; PREDNISOLO15 MG/5 M1 ORAL
[2018-02-01 11:50] VITALS: BP 128/78
[2018-02-01] MEDS ORDERED: HYDROmorphone 1mg/ml Carpuject IVP ONE (12:00)
[2018-02-01 12:18] LABS: APPEARANCE,URINE CLEAR; BILIRUBIN, URINE NEGATIVE (NEGATIVE); GLUCOSE, URINE (UA) NEGATIVE (NEGATIVE); KETONES,URINE 2+ (NEGATIVE); LEUKOCYTE ESTERASE ,URINE 2+ (NEGATIVE); NITRITE,URINE NEGATIVE (NEGATIVE); PH,URINE 5 (4.5-8.0); PROTEIN,URINE 2+ (NEGATIVE)
[2018-02-01 12:19] LABS: BASOPHILS % (AUTO) 0.9 % (0.0-2.0); EOSINOPHILS % (AUTO) 0.6 % (0.0-3.0); HEMATOCRIT 47.4 % (37.0-47.0); HEMOGLOBIN 15.3 G/DL (12.0-16.0); LYMPHOCYTES % (AUTO) 25.8 % (20.0-45.0); MEAN CORPUSCULAR VOLUME 86 FL (80-99); MONOCYTES % (AUTO) 7.9 % (1.0-10.0); NEUTROPHILS % (AUTO) 64.7 % (45.0-75.0); PLATELET COUNT 365 K/UL (150-450); RED BLOOD COUNT 5.51 M/UL (4.20-5.40); RED CELL DISTRIBUTION WIDTH 12.5 % (11.6-14.8); WHITE BLOOD COUNT 7.5 K/UL (4.8-10.8)
[2018-02-01 12:22] LABS: UROBILINOGEN,URINE 4 MG/DL (0.0-1.0)
[2018-02-01 12:28] LABS: ANION GAP 11 mmol/L (5-15); BLOOD UREA NITROGEN 11 mg/dL (7-18); CALCIUM 9.4 MG/DL (8.5-10.1); CARBON DIOXIDE 24 MMOL/L (21-32); CHLORIDE 103 MMOL/L (98-107); COLOR,URINE YELLOW; CREATININE 0.8 MG/DL (0.55-1.30); POTASSIUM 4.2 MMOL/L (3.5-5.1); SODIUM 138 MMOL/L (136-145)
--- NOTE | 2018-02-01 12:35 | Emergency Room Report ---
History of Present Illness General Chief Complaint: Back Pain-No Injury Source: Patient Present Illness HPI Patient presents with complaints of increased low back pain Reports that she gets epidural injections on a regular basis Her last epidural was 2 weeks ago For the past 2 days patient has had increased pain Unable to stand or ambulate Today as the pain became intractable she presents to the ER Denies any loss of control of bowel/urination denies any fevers or chills Denies any neck pain or photophobia Allergies: Coded Allergies: MORPHINE (Verified Allergy, Unknown, 05/02/17) Patient History Past Medical History: see triage record Pertinent Family History: none Last Menstrual Period: NA Reviewed Nursing Documentation: PMH: Agreed; PSxH: Agreed Nursing Documentation-PMH Hx Hypertension: Yes Hx Asthma: Yes Review of Systems All Other Systems: negative except mentioned in HPI Physical Exam Vital Signs Date Time Temp Pulse Resp B/P (MAP) Pulse Ox O2 Delivery O2 Flow Rate FiO2 02/01/18 11:35 97.9 80 20 139/80 98 Room Air Sp02 EP Interpretation: reviewed, normal General Appearance: mild distress - In pain Head: normocephalic, atraumatic Eyes: bilateral eye PERRL, bilateral eye EOMI ENT: normal pharynx Neck: supple, thyroid normal Respiratory: lungs clear Cardiovascular #1: regular rate, rhythm, no edema Gastrointestinal: non tender, soft, no mass Musculoskeletal: other - Patient is uncomfortable diffusely paraspinal [id number] no midline step-off sensation is intact and lower extremity patient will to move both feet and extension and flexion,, Neurologic: alert, oriented x3, responsive, desk attendant III-XII nml as tested Skin: normal color, no rash Lymphatic: no adenopathy Medical Decision Making Diagnostic Impression: Primary Impression: Intractable back pain Additional Impression: Weakness ER Course Multiple differentials are considered including but not limited to Neurological, neurosurgical, orthopedic, infectious pathology Patient is afebrile, has previous low back disease with epidural injections At this time does not show signs of clinical epidural abscess nevertheless requiring repeat pain medication And admission for further care Labs Test 02/01/18 11:55 White Blood Count 7.5 K/UL (4.8-10.8) Red Blood Count 5.51 M/UL (4.20-5.40) Hemoglobin 15.3 G/DL (12.0-16.0) Hematocrit 47.4 % (37.0-47.0) Mean Corpuscular Volume 86 FL (80-99) Mean Corpuscular Hemoglobin 27.8 PG (27.0-31.0) Mean Corpuscular Hemoglobin Concent 32.3 G/DL (32.0-36.0) Red Cell Distribution Width 12.5 % (11.6-14.8) Platelet Count 365 K/UL (150-450) Mean Platelet Volume 7.5 FL (6.5-10.1) Neutrophils (%) (Auto) 64.7 % (45.0-75.0) Lymphocytes (%) (Auto) 25.8 % (20.0-45.0) Monocytes (%) (Auto) 7.9 % (1.0-10.0) Eosinophils (%) (Auto) 0.6 % (0.0-3.0) Basophils (%) (Auto) 0.9 % (0.0-2.0) Urine Color Yellow Urine Appearance Clear Urine pH 5 (4.5-8.0) Urine Specific [place] 1.025 (1.005-1.035) Urine Protein 2+ (NEGATIVE) Urine Glucose (UA) Negative (NEGATIVE) Urine Ketones 2+ (NEGATIVE) Urine Blood Negative (NEGATIVE) Urine Nitrite Negative (NEGATIVE) Urine Bilirubin Negative (NEGATIVE) Urine Urobilinogen 4 MG/DL (0.0-1.0) Urine Leukocyte Esterase 2+ (NEGATIVE) Urine RBC 0-2 /HPF (0 - 2) Urine WBC 5-10 /HPF (0 - 2) Urine Squamous Epithelial Cells Moderate /LPF (NONE/OCC) Urine Bacteria Few /HPF (NONE) Urine Hyaline Casts 0-2 /LPF (NONE) Urine Mucus Moderate /LPF (NONE/OCC) Sodium Level 138 MMOL/L (136-145) Potassium Level 4.2 MMOL/L (3.5-5.1) Chloride Level 103 MMOL/L (98-107) Carbon Dioxide Level 24 MMOL/L (21-32) Anion Gap 11 mmol/L (5-15) Blood Urea Nitrogen 11 mg/dL (7-18) Creatinine 0.8 MG/DL (0.55-1.30) Estimat Glomerular Filtration Rate > 60 mL/min (>60) Glucose Level 136 MG/DL (74-106) Calcium Level 9.4 MG/DL (8.5-10.1) Total Bilirubin 0.6 MG/DL (0.2-1.0) Aspartate Amino Transf (AST/SGOT) 27 U/L (15-37) Alanine Aminotransferase (ALT/SGPT) 41 U/L (12-78) Alkaline Phosphatase 113 U/L (46-116) Total Creatine Kinase 74 U/L (26-308) Creatine Kinase MB 0.9 NG/ML (0.0-3.6) Creatine Kinase MB Relative Index 1.2 Troponin I 0.000 ng/mL (0.000-0.056) Total Protein 8.3 G/DL (6.4-8.2) Albumin 3.7 G/DL (3.4-5.0) Globulin 4.6 g/dL Albumin/Globulin Ratio 0.8 (1.0-2.7) Rhythm Strip Diag. Results EP Interpretation: yes Rate: 77 Rhythm: NSR, no PVC's, no ectopy Chest X-Ray Diagnostic Results Chest X-Ray Diagnostic Results : Chest X-Ray Ordered: Yes # of Views/Limited/Complete: 1 View Indication: Chest Pain EP Interpretation: Yes Interpretation: no consolidation, no effusion, no pneumothorax Impression: No acute disease Electronically Signed by: Roel Onofre DO Last Vital Signs Date Time Temp Pulse Resp B/P (MAP) Pulse Ox O2 Delivery O2 Flow Rate FiO2 02/01/18 11:35 97.9 80 20 139/80 98 Room Air Status: improved Disposition: ADMITTED INPATIENT Condition: Serious Referrals: NOT CHOSEN IPA/,REFERRING (PCP) Roel Onofre DO Feb 01, 2018 12:35
[2018-02-01 12:42] LABS: ALANINE AMINOTRANSFERASE 41 U/L (12-78); ALBUMIN 3.7 G/DL (3.4-5.0); ALBUMIN/GLOBULIN RATIO 0.8 (1.0-2.7); ALKALINE PHOSPHATASE 113 U/L (46-116); ASPARTATE AMINO TRANSFERASE 27 U/L (15-37); BILIRUBIN,TOTAL 0.6 MG/DL (0.2-1.0); CKMB 0.9 NG/ML (0.0-3.6); CREATINE KINASE 74 U/L (26-308)
[2018-02-01] MEDS ORDERED: Mylanta II UD 30ml ORAL PRN (13:00)
[2018-02-01] MEDS ORDERED: LORazepam Inj 2mg/ml 1ml IV PRN (13:00)
[2018-02-01] MEDS ORDERED: Miralax 17gm pkt ORAL PRN (13:00)
--- NOTE | 2018-02-01 13:05 | Diagnostic Imaging Report ---
Indication: Chest pain Comparison: 05/02/2017 A single view chest radiograph was obtained. Findings: Cardiomediastinal appearance is within normal limits for age. The lungs are clear. Pulmonary vascularity is appropriate. The diaphragmatic contour is smooth and costophrenic angles are sharp. No pleural effusions are identified. The bones are osteopenic. Degenerative changes of both shoulders noted.. Impression: No acute findings
[2018-02-01] MEDS ORDERED: METAMUCIL0.52 G1 PO (13:16)
[2018-02-01] MEDS ORDERED: LOMOTIL TABLET1 EACH ORAL (13:17)
[2018-02-01] MEDS ORDERED: ZESTRIL20 MG ORAL (13:21)
[2018-02-01 16:00] VITALS: BP 133/84
[2018-02-01] MEDS: HYDROmorphone 1mg/ml Carpuject IVP PRN ×2 (16:29→20:39)
[2018-02-01 16:43] VITALS: BP_SYST 205; BP_DIAS 103; BP_DIAS 203
[2018-02-01] MEDS ORDERED: Methocarbamol 500mg tab ORAL SCH ×2 (17:00→22:00)
--- NOTE | 2018-02-01 19:05 | Cardiology Progress Note ---
Assessment/Plan Assessment/Plan The patient is seen and examined, full cardiology consult report is dictated. Objective Last 24 Hour Vital Signs Date Time Temp Pulse Resp B/P (MAP) Pulse Ox O2 Delivery O2 Flow Rate FiO2 02/01/18 16:43 205/203 (204) 02/01/18 14:00 Room Air 02/01/18 13:57 97.9 75 20 128/78 98 Room Air 02/01/18 13:00 97.9 02/01/18 13:00 97.9 02/01/18 13:00 97.9 02/01/18 11:50 97.9 75 20 128/78 98 Room Air 02/01/18 11:35 97.9 80 20 139/80 98 Room Air Laboratory Tests Test 02/01/18 11:55 White Blood Count 7.5 K/UL (4.8-10.8) Red Blood Count 5.51 M/UL (4.20-5.40) H Hemoglobin 15.3 G/DL (12.0-16.0) Hematocrit 47.4 % (37.0-47.0) H Mean Corpuscular Volume 86 FL (80-99) Mean Corpuscular Hemoglobin 27.8 PG (27.0-31.0) Mean Corpuscular Hemoglobin Concent 32.3 G/DL (32.0-36.0) Red Cell Distribution Width 12.5 % (11.6-14.8) Platelet Count 365 K/UL (150-450) Mean Platelet Volume 7.5 FL (6.5-10.1) Neutrophils (%) (Auto) 64.7 % (45.0-75.0) Lymphocytes (%) (Auto) 25.8 % (20.0-45.0) Monocytes (%) (Auto) 7.9 % (1.0-10.0) Eosinophils (%) (Auto) 0.6 % (0.0-3.0) Basophils (%) (Auto) 0.9 % (0.0-2.0) Urine Color Yellow Urine Appearance Clear Urine pH 5 (4.5-8.0) Urine Specific [place] 1.025 (1.005-1.035) Urine Protein 2+ (NEGATIVE) H Urine Glucose (UA) Negative (NEGATIVE) Urine Ketones 2+ (NEGATIVE) H Urine Blood Negative (NEGATIVE) Urine Nitrite Negative (NEGATIVE) Urine Bilirubin Negative (NEGATIVE) Urine Urobilinogen 4 MG/DL (0.0-1.0) H Urine Leukocyte Esterase 2+ (NEGATIVE) H Urine RBC 0-2 /HPF (0 - 2) Urine WBC 5-10 /HPF (0 - 2) H Urine Squamous Epithelial Cells Moderate /LPF (NONE/OCC) H Urine Bacteria Few /HPF (NONE) Urine Hyaline Casts 0-2 /LPF (NONE) H Urine Mucus Moderate /LPF (NONE/OCC) H Sodium Level 138 MMOL/L (136-145) Potassium Level 4.2 MMOL/L (3.5-5.1) Chloride Level 103 MMOL/L (98-107) Carbon Dioxide Level 24 MMOL/L (21-32) Anion Gap 11 mmol/L (5-15) Blood Urea Nitrogen 11 mg/dL (7-18) Creatinine 0.8 MG/DL (0.55-1.30) Estimat Glomerular Filtration Rate > 60 mL/min (>60) Glucose Level 136 MG/DL (74-106) H Calcium Level 9.4 MG/DL (8.5-10.1) Total Bilirubin 0.6 MG/DL (0.2-1.0) Aspartate Amino Transf (AST/SGOT) 27 U/L (15-37) Alanine Aminotransferase (ALT/SGPT) 41 U/L (12-78) Alkaline Phosphatase 113 U/L (46-116) Total Creatine Kinase 74 U/L (26-308) Creatine Kinase MB 0.9 NG/ML (0.0-3.6) Creatine Kinase MB Relative Index 1.2 Troponin I 0.000 ng/mL (0.000-0.056) Total Protein 8.3 G/DL (6.4-8.2) H Albumin 3.7 G/DL (3.4-5.0) Globulin 4.6 g/dL Albumin/Globulin Ratio 0.8 (1.0-2.7) Marcus Oakley MD Feb 01, 2018 19:05
[2018-02-01 20:00] VITALS: BP 117/55
[2018-02-01] MEDS ORDERED: HYDROcodone/Acetamin 10/325 tab ORAL PRN (21:33)
[2018-02-01] MEDS: Heparin 5000 units/ml inj SUBQ SCH (21:35)
[2018-02-01] MEDS: Zolpidem 5mg tab ORAL PRN (21:44)
[2018-02-01] MEDS: Methocarbamol 500mg tab ORAL PRN (21:45)
--- NOTE | 2018-02-01 22:15 | History and Physical Report ---
DATE OF ADMISSION: 02/01/2018 TIME SEEN: 1 p.m. CONSULTANTS: 1. Marcella Ang M.D. 2. Andreia Perez M.D. 3. Marcus Coronado M.D. 4. Brian Gilmore M.D. CHIEF COMPLAINT: Back pain x3 days and weakness. BRIEF HISTORY: This is a 72-year-old female, who lives at home with history of back pain increasing for three days. No trauma. She started having back pain that is radiating to the left leg. It was dull in nature with occasional shooting pain. It got so excruciating that the patient came to [place] ER last night and being admitted for pain control. Currently, calm in bed, in the ER. No complaint otherwise. PAST MEDICAL HISTORY: Includes chest pain, weakness, and obesity. PAST SURGICAL HISTORY: Gallbladder, appendectomy, , bilateral tubal ligation, and hernia. MEDICATIONS: Include Cymbalta, Lipitor, heparin, Tylenol, MiraLAX, Zofran, Ativan, Ambien, and Mylanta. ALLERGIES: Morphine gives her hives. SOCIAL HISTORY: No smoking. No alcohol. No intravenous drug abuse. FAMILY HISTORY: Noncontributory. REVIEW OF SYSTEMS: No chest pain. Slight short of breath. No nausea or vomiting. No diarrhea. PHYSICAL EXAMINATION: GENERAL: Calm in bed, oriented x3, and in no acute distress. VITAL SIGNS: Temperature is 97 degrees, pulse 75, respirations 20, and blood pressure 120/78. CARDIOVASCULAR: No murmurs. LUNGS: Distant and clear. ABDOMEN: Bowel sounds positive. Nontender. Nondistended. EXTREMITIES: No cyanosis, clubbing, or edema. NEUROLOGIC: The patient moves all extremities. Slightly weak. LABORATORY AND DIAGNOSTIC DATA: Labs, at this time, glucose 136. Troponin is 0.0. Otherwise, BMP is normal. Urinalysis show 2+ leukocyte esterase. ASSESSMENT: 1. Urinary tract infection. 2. Back pain. 3. Weakness. 4. Degenerative joint disease. 5. Obesity. PLAN: 1. OT, PT, and dietary evaluation. 2. Pain control. 3. Antibiotics per Infectious Disease. 4. CBC and BMP in the morning. 5. Resume home medications. 6. We will continue to follow the patient. Leroy Serrano D.O. DR: TENZIN JOB#: [id number] CC:
[2018-02-02] VITALS (7 sets, daily range): BP systolic 108–135; BP diastolic 60–80
[2018-02-02] MEDS: HYDROmorphone 1mg/ml Carpuject IVP PRN ×3 (01:27→10:12)
[2018-02-02 06:14] LABS: BASOPHILS % (AUTO) 1.1 % (0.0-2.0); EOSINOPHILS % (AUTO) 1.9 % (0.0-3.0); HEMATOCRIT 43.9 % (37.0-47.0); HEMOGLOBIN 14.4 G/DL (12.0-16.0); LYMPHOCYTES % (AUTO) 38.5 % (20.0-45.0); MEAN CORPUSCULAR VOLUME 87 FL (80-99); MONOCYTES % (AUTO) 8.6 % (1.0-10.0); NEUTROPHILS % (AUTO) 49.9 % (45.0-75.0); PLATELET COUNT 294 K/UL (150-450); RED BLOOD COUNT 5.05 M/UL (4.20-5.40); RED CELL DISTRIBUTION WIDTH 12.4 % (11.6-14.8); WHITE BLOOD COUNT 6.9 K/UL (4.8-10.8)
[2018-02-02 06:44] LABS: ALANINE AMINOTRANSFERASE 39 U/L (12-78); ALBUMIN 3.2 G/DL (3.4-5.0); ALBUMIN/GLOBULIN RATIO 0.8 (1.0-2.7); ALKALINE PHOSPHATASE 104 U/L (46-116); ANION GAP 8 mmol/L (5-15); ASPARTATE AMINO TRANSFERASE 24 U/L (15-37); BILIRUBIN,TOTAL 0.5 MG/DL (0.2-1.0); BLOOD UREA NITROGEN 14 mg/dL (7-18); CARBON DIOXIDE 27 MMOL/L (21-32); CHLORIDE 103 MMOL/L (98-107); CREATININE 0.8 MG/DL (0.55-1.30); POTASSIUM 4.3 MMOL/L (3.5-5.1); SODIUM 138 MMOL/L (136-145)
[2018-02-02] MEDS: DULoxetine 30mg cap ORAL SCH (08:15)
[2018-02-02] MEDS: Heparin 5000 units/ml inj SUBQ SCH ×2 (08:19→21:30)
--- NOTE | 2018-02-02 08:57 | Consultation ---
History of Present Illness General Date patient seen: Feb 02, 2018 Chief Complaint: Present Illness Allergies: Coded Allergies: MORPHINE (Verified Allergy, Unknown, 05/02/17) Medication History Scheduled Atorvastatin Calcium* (Lipitor*), 10 MG ORAL BEDTIME, (Reported) Bimatoprost (Lumigan), 1 DROP BOTH EYES DAILY, (Reported) Duloxetine Hcl* (Cymbalta*), 30 MG ORAL DAILY, (Reported) Lisinopril* (Zestril*), 20 MG ORAL DAILY, (Reported) Miscellaneous Medications Diphenoxylate Hcl/Atropine (Lomotil Tablet), 1 TAB ORAL, (Reported) Prednisolone* (Prelone*), 15 MG ORAL, (Reported) Psyllium Husk (Metamucil), 0.52 GM PO, (Reported) Patient History Healthcare decision maker Resuscitation status Full Code Advanced Directive on File has one at home and one at Dr. Mandujano office Physical Exam Last 24 Hour Vital Signs Date Time Temp Pulse Resp B/P (MAP) Pulse Ox O2 Delivery O2 Flow Rate FiO2 02/02/18 08:00 97.9 85 28 108/60 (76) 94 02/02/18 04:00 97.4 85 20 114/71 (85) 97 02/02/18 00:00 98.0 94 21 114/64 (81) 98 02/01/18 21:00 Room Air 02/01/18 20:00 98.2 78 20 117/55 (75) 98 02/01/18 16:00 98.1 74 20 133/84 (100) 98 02/01/18 14:00 Room Air 02/01/18 13:57 97.9 75 20 128/78 98 Room Air 02/01/18 13:00 97.9 02/01/18 13:00 97.9 02/01/18 13:00 97.9 02/01/18 11:50 97.9 75 20 128/78 98 Room Air 02/01/18 11:35 97.9 80 20 139/80 98 Room Air Intake and Output 02/01/18 02/02/18 18:59 06:59 Intake Total 360 ml 360 ml Balance 360 ml 360 ml Intake Oral 360 ml 360 ml # Voids 4 Laboratory Tests Test 02/01/18 11:55 02/02/18 05:20 White Blood Count 7.5 K/UL (4.8-10.8) 6.9 K/UL (4.8-10.8) Red Blood Count 5.51 M/UL (4.20-5.40) H 5.05 M/UL (4.20-5.40) Hemoglobin 15.3 G/DL (12.0-16.0) 14.4 G/DL (12.0-16.0) Hematocrit 47.4 % (37.0-47.0) H 43.9 % (37.0-47.0) Mean Corpuscular Volume 86 FL (80-99) 87 FL (80-99) Mean Corpuscular Hemoglobin 27.8 PG (27.0-31.0) 28.6 PG (27.0-31.0) Mean Corpuscular Hemoglobin Concent 32.3 G/DL (32.0-36.0) 32.9 G/DL (32.0-36.0) Red Cell Distribution Width 12.5 % (11.6-14.8) 12.4 % (11.6-14.8) Platelet Count 365 K/UL (150-450) 294 K/UL (150-450) Mean Platelet Volume 7.5 FL (6.5-10.1) 8.1 FL (6.5-10.1) Neutrophils (%) (Auto) 64.7 % (45.0-75.0) 49.9 % (45.0-75.0) Lymphocytes (%) (Auto) 25.8 % (20.0-45.0) 38.5 % (20.0-45.0) Monocytes (%) (Auto) 7.9 % (1.0-10.0) 8.6 % (1.0-10.0) Eosinophils (%) (Auto) 0.6 % (0.0-3.0) 1.9 % (0.0-3.0) Basophils (%) (Auto) 0.9 % (0.0-2.0) 1.1 % (0.0-2.0) Urine Color Yellow Urine Appearance Clear Urine pH 5 (4.5-8.0) Urine Specific [place] 1.025 (1.005-1.035) Urine Protein 2+ (NEGATIVE) H Urine Glucose (UA) Negative (NEGATIVE) Urine Ketones 2+ (NEGATIVE) H Urine Blood Negative (NEGATIVE) Urine Nitrite Negative (NEGATIVE) Urine Bilirubin Negative (NEGATIVE) Urine Urobilinogen 4 MG/DL (0.0-1.0) H Urine Leukocyte Esterase 2+ (NEGATIVE) H Urine RBC 0-2 /HPF (0 - 2) Urine WBC 5-10 /HPF (0 - 2) H Urine Squamous Epithelial Cells Moderate /LPF (NONE/OCC) H Urine Bacteria Few /HPF (NONE) Urine Hyaline Casts 0-2 /LPF (NONE) H Urine Mucus Moderate /LPF (NONE/OCC) H Sodium Level 138 MMOL/L (136-145) 138 MMOL/L (136-145) Potassium Level 4.2 MMOL/L (3.5-5.1) 4.3 MMOL/L (3.5-5.1) Chloride Level 103 MMOL/L (98-107) 103 MMOL/L (98-107) Carbon Dioxide Level 24 MMOL/L (21-32) 27 MMOL/L (21-32) Anion Gap 11 mmol/L (5-15) 8 mmol/L (5-15) Blood Urea Nitrogen 11 mg/dL (7-18) 14 mg/dL (7-18) Creatinine 0.8 MG/DL (0.55-1.30) 0.8 MG/DL (0.55-1.30) Estimat Glomerular Filtration Rate > 60 mL/min (>60) > 60 mL/min (>60) Glucose Level 136 MG/DL (74-106) H 119 MG/DL (74-106) H Calcium Level 9.4 MG/DL (8.5-10.1) 9.0 MG/DL (8.5-10.1) Total Bilirubin 0.6 MG/DL (0.2-1.0) 0.5 MG/DL (0.2-1.0) Aspartate Amino Transf (AST/SGOT) 27 U/L (15-37) 24 U/L (15-37) Alanine Aminotransferase (ALT/SGPT) 41 U/L (12-78) 39 U/L (12-78) Alkaline Phosphatase 113 U/L (46-116) 104 U/L (46-116) Total Creatine Kinase 74 U/L (26-308) Creatine Kinase MB 0.9 NG/ML (0.0-3.6) Creatine Kinase MB Relative Index 1.2 Troponin I 0.000 ng/mL (0.000-0.056) Total Protein 8.3 G/DL (6.4-8.2) H 7.2 G/DL (6.4-8.2) Albumin 3.7 G/DL (3.4-5.0) 3.2 G/DL (3.4-5.0) L Globulin 4.6 g/dL 4.0 g/dL Albumin/Globulin Ratio 0.8 (1.0-2.7) L 0.8 (1.0-2.7) L Thyroid Stimulating Hormone (TSH) 0.451 uiU/mL (0.358-3.740) Height (Feet): 5 Height (Inches): 6.00 Weight (Pounds): 248 Medications Current Medications Medications (Trade) Dose Ordered Sig/Ernesto Route PRN Reason Start Time Stop Time Status Last Admin Dose Admin Acetaminophen (Tylenol) 650 mg Q4H PRN ORAL fever 02/01/18 13:00 03/03/18 12:59 Acetaminophen/ Hydrocodone Bitart ([place] 10/325) 1 tab Q4H PRN ORAL For Moderate Pain 02/01/18 21:33 02/08/18 21:32 02/02/18 08:18 Al Hydroxide/Mg Hydroxide (Mylanta II) 30 ml Q6H PRN ORAL dyspepsia 02/01/18 13:00 03/03/18 12:59 Atorvastatin Calcium (Lipitor) 10 mg BEDTIME ORAL 02/01/18 21:00 03/03/18 20:59 02/01/18 21:34 Dextrose (Dextrose 50%) 25 ml Q30M PRN IV Hypoglycemia 02/01/18 13:00 03/03/18 12:59 Dextrose (Dextrose 50%) 50 ml Q30M PRN IV Hypoglycemia 02/01/18 13:00 03/03/18 12:59 Duloxetine HCl (Cymbalta) 30 mg DAILY ORAL 02/02/18 09:00 03/04/18 08:59 02/02/18 08:15 Gabapentin (Neurontin) 100 mg Q8HR ORAL 02/01/18 22:00 03/03/18 21:59 02/02/18 05:46 Heparin Sodium (Porcine) (Heparin 5000 units/ml) 5,000 units EVERY 12 HOURS SUBQ 02/01/18 21:00 03/03/18 20:59 02/02/18 08:19 Hydromorphone HCl (Dilaudid) 1 mg Q4H PRN IVP For Severe Pain 02/01/18 16:05 02/08/18 16:04 02/02/18 06:09 Lorazepam (Ativan 2mg/ml 1ml) 0.5 mg Q4H PRN IV For Anxiety 02/01/18 13:00 02/08/18 12:59 Methocarbamol (Robaxin) 500 mg ONCE ORAL 02/01/18 17:00 03/03/18 16:59 02/01/18 16:33 Methocarbamol (Robaxin) 500 mg Q8H PRN ORAL Muscle Spasms 02/01/18 16:41 03/03/18 16:40 02/01/18 21:45 Ondansetron HCl (Zofran) 4 mg Q6H PRN IVP Nausea & Vomiting 02/01/18 13:00 03/03/18 12:59 Polyethylene Glycol (Miralax) 17 gm HSPRN PRN ORAL Constipation 02/01/18 13:00 03/03/18 12:59 Zolpidem Tartrate (Ambien) 5 mg HSPRN PRN ORAL Insomnia 02/01/18 13:00 02/08/18 12:59 02/01/18 21:44 Assessment/Plan Assessment/Plan (1) Lumbar Herniated disc (2) Lumbar Radiculopathy (3) Lumbar DDD (4) Lumbar Spondylosis (5) Muscle spasm (6) Morbid obesity seen dictated Maninder Coombs Feb 02, 2018 08:57
[2018-02-02] MEDS: Methocarbamol 500mg tab ORAL PRN (10:11)
--- NOTE | 2018-02-02 11:26 | Consultation ---
History of Present Illness General Date patient seen: Feb 02, 2018 Chief Complaint: Back Pain-No Injury Present Illness HPI 72 year old female with hx of depression, Hypertension presented to ER with complaints of increased low back pain. She gets epidural injections on a regular basis Her last epidural was 2 weeks ago. For the past 2 days patient has had increased pain She is unable to stand or ambulate. She is admitted for intractable pain and inability to walk. Allergies: Coded Allergies: MORPHINE (Verified Allergy, Unknown, 05/02/17) Medication History Scheduled Atorvastatin Calcium* (Lipitor*), 10 MG ORAL BEDTIME, (Reported) Bimatoprost (Lumigan), 1 DROP BOTH EYES DAILY, (Reported) Duloxetine Hcl* (Cymbalta*), 30 MG ORAL DAILY, (Reported) Lisinopril* (Zestril*), 20 MG ORAL DAILY, (Reported) Miscellaneous Medications Diphenoxylate Hcl/Atropine (Lomotil Tablet), 1 TAB ORAL, (Reported) Prednisolone* (Prelone*), 15 MG ORAL, (Reported) Psyllium Husk (Metamucil), 0.52 GM PO, (Reported) Patient History Healthcare decision maker Resuscitation status Full Code Advanced Directive on File No Past Medical/Surgical History Past Medical/Surgical History: (1) Hypertension (2) Depression Review of Systems All Other Systems: negative except mentioned in HPI Physical Exam General Appearance: WD/WN Lines, tubes and drains: peripheral HEENT: normocephalic, atraumatic Neck: non-tender, normal alignment Respiratory/Chest: chest wall non-tender, lungs clear Breasts: no masses Cardiovascular/Chest: normal peripheral pulses Abdomen: normal bowel sounds, non tender Last 24 Hour Vital Signs Date Time Temp Pulse Resp B/P (MAP) Pulse Ox O2 Delivery O2 Flow Rate FiO2 02/02/18 10:19 80 134/78 (96) 02/02/18 09:00 Room Air 02/02/18 08:00 97.9 85 28 108/60 (76) 94 02/02/18 04:00 97.4 85 20 114/71 (85) 97 02/02/18 00:00 98.0 94 21 114/64 (81) 98 02/01/18 21:00 Room Air 02/01/18 20:00 98.2 78 20 117/55 (75) 98 02/01/18 16:00 98.1 74 20 133/84 (100) 98 02/01/18 14:00 Room Air 02/01/18 13:57 97.9 75 20 128/78 98 Room Air 02/01/18 13:00 97.9 02/01/18 13:00 97.9 02/01/18 13:00 97.9 02/01/18 11:50 97.9 75 20 128/78 98 Room Air 02/01/18 11:35 97.9 80 20 139/80 98 Room Air Intake and Output 02/01/18 02/02/18 19:00 07:00 Intake Total 360 ml 360 ml Balance 360 ml 360 ml Intake Oral 360 ml 360 ml # Voids 4 Laboratory Tests Test 02/01/18 11:55 02/02/18 05:20 White Blood Count 7.5 K/UL (4.8-10.8) 6.9 K/UL (4.8-10.8) Red Blood Count 5.51 M/UL (4.20-5.40) H 5.05 M/UL (4.20-5.40) Hemoglobin 15.3 G/DL (12.0-16.0) 14.4 G/DL (12.0-16.0) Hematocrit 47.4 % (37.0-47.0) H 43.9 % (37.0-47.0) Mean Corpuscular Volume 86 FL (80-99) 87 FL (80-99) Mean Corpuscular Hemoglobin 27.8 PG (27.0-31.0) 28.6 PG (27.0-31.0) Mean Corpuscular Hemoglobin Concent 32.3 G/DL (32.0-36.0) 32.9 G/DL (32.0-36.0) Red Cell Distribution Width 12.5 % (11.6-14.8) 12.4 % (11.6-14.8) Platelet Count 365 K/UL (150-450) 294 K/UL (150-450) Mean Platelet Volume 7.5 FL (6.5-10.1) 8.1 FL (6.5-10.1) Neutrophils (%) (Auto) 64.7 % (45.0-75.0) 49.9 % (45.0-75.0) Lymphocytes (%) (Auto) 25.8 % (20.0-45.0) 38.5 % (20.0-45.0) Monocytes (%) (Auto) 7.9 % (1.0-10.0) 8.6 % (1.0-10.0) Eosinophils (%) (Auto) 0.6 % (0.0-3.0) 1.9 % (0.0-3.0) Basophils (%) (Auto) 0.9 % (0.0-2.0) 1.1 % (0.0-2.0) Urine Color Yellow Urine Appearance Clear Urine pH 5 (4.5-8.0) Urine Specific [place] 1.025 (1.005-1.035) Urine Protein 2+ (NEGATIVE) H Urine Glucose (UA) Negative (NEGATIVE) Urine Ketones 2+ (NEGATIVE) H Urine Blood Negative (NEGATIVE) Urine Nitrite Negative (NEGATIVE) Urine Bilirubin Negative (NEGATIVE) Urine Urobilinogen 4 MG/DL (0.0-1.0) H Urine Leukocyte Esterase 2+ (NEGATIVE) H Urine RBC 0-2 /HPF (0 - 2) Urine WBC 5-10 /HPF (0 - 2) H Urine Squamous Epithelial Cells Moderate /LPF (NONE/OCC) H Urine Bacteria Few /HPF (NONE) Urine Hyaline Casts 0-2 /LPF (NONE) H Urine Mucus Moderate /LPF (NONE/OCC) H Sodium Level 138 MMOL/L (136-145) 138 MMOL/L (136-145) Potassium Level 4.2 MMOL/L (3.5-5.1) 4.3 MMOL/L (3.5-5.1) Chloride Level 103 MMOL/L (98-107) 103 MMOL/L (98-107) Carbon Dioxide Level 24 MMOL/L (21-32) 27 MMOL/L (21-32) Anion Gap 11 mmol/L (5-15) 8 mmol/L (5-15) Blood Urea Nitrogen 11 mg/dL (7-18) 14 mg/dL (7-18) Creatinine 0.8 MG/DL (0.55-1.30) 0.8 MG/DL (0.55-1.30) Estimat Glomerular Filtration Rate > 60 mL/min (>60) > 60 mL/min (>60) Glucose Level 136 MG/DL (74-106) H 119 MG/DL (74-106) H Calcium Level 9.4 MG/DL (8.5-10.1) 9.0 MG/DL (8.5-10.1) Total Bilirubin 0.6 MG/DL (0.2-1.0) 0.5 MG/DL (0.2-1.0) Aspartate Amino Transf (AST/SGOT) 27 U/L (15-37) 24 U/L (15-37) Alanine Aminotransferase (ALT/SGPT) 41 U/L (12-78) 39 U/L (12-78) Alkaline Phosphatase 113 U/L (46-116) 104 U/L (46-116) Total Creatine Kinase 74 U/L (26-308) Creatine Kinase MB 0.9 NG/ML (0.0-3.6) Creatine Kinase MB Relative Index 1.2 Troponin I 0.000 ng/mL (0.000-0.056) Total Protein 8.3 G/DL (6.4-8.2) H 7.2 G/DL (6.4-8.2) Albumin 3.7 G/DL (3.4-5.0) 3.2 G/DL (3.4-5.0) L Globulin 4.6 g/dL 4.0 g/dL Albumin/Globulin Ratio 0.8 (1.0-2.7) L 0.8 (1.0-2.7) L Thyroid Stimulating Hormone (TSH) 0.451 uiU/mL (0.358-3.740) Height (Feet): 5 Height (Inches): 6.00 Weight (Pounds): 248 Medications Current Medications Medications (Trade) Dose Ordered Sig/Ernesto Route PRN Reason Start Time Stop Time Status Last Admin Dose Admin Acetaminophen (Tylenol) 650 mg Q4H PRN ORAL fever 02/01/18 13:00 03/03/18 12:59 Acetaminophen/ Hydrocodone Bitart ([place] ) 1 tab Q4H PRN ORAL For Moderate Pain 02/01/18 21:33 02/08/18 21:32 02/02/18 08:18 Al Hydroxide/Mg Hydroxide (Mylanta II) 30 ml Q6H PRN ORAL dyspepsia 02/01/18 13:00 03/03/18 12:59 Atorvastatin Calcium (Lipitor) 10 mg BEDTIME ORAL 02/01/18 21:00 03/03/18 20:59 02/01/18 21:34 Dextrose (Dextrose 50%) 25 ml Q30M PRN IV Hypoglycemia 02/01/18 13:00 03/03/18 12:59 Dextrose (Dextrose 50%) 50 ml Q30M PRN IV Hypoglycemia 02/01/18 13:00 03/03/18 12:59 Duloxetine HCl (Cymbalta) 30 mg DAILY ORAL 02/02/18 09:00 03/04/18 08:59 02/02/18 08:15 Gabapentin (Neurontin) 100 mg Q8HR ORAL 02/01/18 22:00 03/03/18 21:59 02/02/18 05:46 Heparin Sodium (Porcine) (Heparin 5000 units/ml) 5,000 units EVERY 12 HOURS SUBQ 02/01/18 21:00 03/03/18 20:59 02/02/18 08:19 Hydromorphone HCl (Dilaudid) 1 mg Q4H PRN IVP For Severe Pain 02/01/18 16:05 02/08/18 16:04 02/02/18 10:12 Lorazepam (Ativan 2mg/ml 1ml) 0.5 mg Q4H PRN IV For Anxiety 02/01/18 13:00 02/08/18 12:59 Methocarbamol (Robaxin) 500 mg ONCE ORAL 02/01/18 17:00 03/03/18 16:59 02/01/18 16:33 Methocarbamol (Robaxin) 500 mg Q8H PRN ORAL Muscle Spasms 02/01/18 16:41 03/03/18 16:40 02/02/18 10:11 Ondansetron HCl (Zofran) 4 mg Q6H PRN IVP Nausea & Vomiting 02/01/18 13:00 03/03/18 12:59 Polyethylene Glycol (Miralax) 17 gm HSPRN PRN ORAL Constipation 02/01/18 13:00 03/03/18 12:59 Zolpidem Tartrate (Ambien) 5 mg HSPRN PRN ORAL Insomnia 02/01/18 13:00 02/08/18 12:59 02/01/18 21:44 Assessment/Plan Problem List: (1) Intractable back pain ICD Codes: M54.9 - Dorsalgia, unspecified SNOMED: 353401579 (2) Unable to ambulate ICD Codes: R26.2 - Difficulty in walking, not elsewhere classified SNOMED: 011520818 (3) Depression ICD Codes: F32.9 - Major depressive disorder, single episode, unspecified SNOMED: 41158765 (4) Hypertension ICD Codes: I10 - Essential (primary) hypertension SNOMED: 33770017 Assessment/Plan bed rest MRI of L spine iv analgesics pain consult monitor BP dvt prophylaxis. Marcella Ang MD Feb 02, 2018 11:26
[2018-02-02] MEDS ORDERED: HYDROmorphone 1mg/ml Carpuject IVP PRN (11:30)
[2018-02-02] MEDS ORDERED: HYDROmorphone 1mg/ml Carpuject IVP SCH (11:32)
--- NOTE | 2018-02-02 13:45 | Diagnostic Imaging Report ---
Indication: Back pain Technique: MRI examination of the lumbar spine was performed in a 1.5 Adalgisa magnet. Sequences obtained include sagittal and axial T1 and T2 fast spin echo, and sagittal STIR. Comparison: none Findings: There is mild narrowing of L4-5 disc with mild concentric disc bulge at this level. Hypertrophied facets also noted at this level. There is mild narrowing of the neural foramen. There is no malalignment. The bone marrow signal is normal. The intervertebral discs appear normal otherwise. No paraspinous or paravertebral soft tissue mass versus, swelling or fluid collections are identified. Conus medullaris is seen at T12 and appears normal. IMPRESSION: Mild degenerative disc disease with concentric disc bulge at L4-5. Mild facet arthropathy at this level. Mild bilateral neural foraminal stenosis noted.
--- NOTE | 2018-02-02 14:41 | General Progress Note ---
Assessment/Plan Problem List: (1) The administrative codes within the [employer] content you are accessing may have as of 01/04/2018. Please contact your IT Dept/Help Desk and request the latest Regulatory release be installed. IT Dept/Help Desk- Please refer to our FAQ page ([email or web address] or contact [employer] Customer Support at [email or web address] (2) Obese ICD Codes: E66.9 - Obesity, unspecified SNOMED: 732802177, 347567231 (3) Degenerative disc disease SNOMED: 57136813 (4) Unable to ambulate ICD Codes: R26.2 - Difficulty in walking, not elsewhere classified SNOMED: 840742444 (5) Weakness ICD Codes: R53.1 - Weakness SNOMED: 04423703 (6) Intractable back pain ICD Codes: M54.9 - Dorsalgia, unspecified SNOMED: 641257436 (7) Hypertension ICD Codes: I10 - Essential (primary) hypertension SNOMED: 84881434 Status: stable, progressing Assessment/Plan ot pt diet pain control abx cbc bmp am dc plan w hh Subjective Constitutional: Reports: weakness Allergies: Coded Allergies: MORPHINE (Verified Allergy, Unknown, 05/02/17) All Systems: reviewed and negative except above Subjective sl back pain Objective Last 24 Hour Vital Signs Date Time Temp Pulse Resp B/P (MAP) Pulse Ox O2 Delivery O2 Flow Rate FiO2 02/02/18 11:35 98.2 86 22 133/77 (95) 97 02/02/18 10:19 80 134/78 (96) 02/02/18 09:00 Room Air 02/02/18 08:00 97.9 85 28 108/60 (76) 94 02/02/18 04:00 97.4 85 20 114/71 (85) 97 02/02/18 00:00 98.0 94 21 114/64 (81) 98 02/01/18 21:00 Room Air 02/01/18 20:00 98.2 78 20 117/55 (75) 98 02/01/18 16:00 98.1 74 20 133/84 (100) 98 Intake and Output 02/01/18 02/02/18 19:00 07:00 Intake Total 360 ml 360 ml Balance 360 ml 360 ml Intake Oral 360 ml 360 ml # Voids 4 Laboratory Tests 02/02/18 05:20: White Blood Count 6.9, Red Blood Count 5.05, Hemoglobin 14.4, Hematocrit 43.9, Mean Corpuscular Volume 87, Mean Corpuscular Hemoglobin 28.6, Mean Corpuscular Hemoglobin Concent 32.9, Red Cell Distribution Width 12.4, Platelet Count 294, Mean Platelet Volume 8.1, Neutrophils (%) (Auto) 49.9, Lymphocytes (%) (Auto) 38.5, Monocytes (%) (Auto) 8.6, Eosinophils (%) (Auto) 1.9, Basophils (%) (Auto ) 1.1, Sodium Level 138, Potassium Level 4.3, Chloride Level 103, Carbon Dioxide Level 27, Anion Gap 8, Blood Urea Nitrogen 14, Creatinine 0.8, Estimat Glomerular Filtration Rate > 60, Glucose Level 119H, Calcium Level 9.0, Total Bilirubin 0.5, Aspartate Amino Transf (AST/SGOT) 24, Alanine Aminotransferase ( ALT/SGPT) 39, Alkaline Phosphatase 104, Total Protein 7.2, Albumin 3.2L, Globulin 4.0, Albumin/Globulin Ratio 0.8L, Thyroid Stimulating Hormone (TSH) 0.451 Height (Feet): 5 Height (Inches): 6.00 Weight (Pounds): 248 General Appearance: alert EENT: normal ENT inspection Neck: normal alignment Cardiovascular: normal peripheral pulses, normal rate, regular rhythm Respiratory/Chest: chest wall non-tender, lungs clear, normal breath sounds Abdomen: normal bowel sounds, non tender, soft Extremities: normal inspection Edema: no edema noted Arm (L), no edema noted Arm (R), no edema noted Leg (L), no edema noted Leg (R), no edema noted Pedal (L), no edema noted Pedal (R), no edema noted Generalized Neurologic: responsive, motor weakness Skin: normal pigmentation, warm/dry Leroy Serrano DO Feb 02, 2018 14:41
--- NOTE | 2018-02-02 14:59 | Cardiology Report ---
APPROVED REPORT EKG Measurement Heart [id number] ID [id number] Normal sinus rhythm Normal ECG
--- NOTE | 2018-02-02 21:15 | Consultation ---
DATE OF CONSULTATION: 02/02/2018 PAIN MANAGEMENT CONSULTATION CONSULTING PHYSICIAN: Andreia Perez M.D. REFERRING PHYSICIAN: Leory Serrano D.O. PHYSICIAN [employer] WORKER: Kun Altamirano CHIEF COMPLAINT: Low back pain. HISTORY OF PRESENT ILLNESS: This is a 72-year-old female, who is being seen for initial pain management consultation here at the [facility]. The patient reports that she has been having low back pain since 1994. It is a constant, chronic pain, rating at 10/10. Pain is sharp pain radiating down the lower extremity. The patient reports that nothing has been helpful to relieve to pain. She reports that she sees Dr. Nimesh Morris for injections into her lower back, which she says is epidurals without steroids and the last one was about 2 weeks ago. It reduced her pain. However, Thursday night started to have severe pain in her lower back radiating down to the lower extremity. Her last MRI was done about 3 years ago. Due to this, we were consulted so that the patient would have adequate pain control while here in the hospital. The patient was started on Dilaudid 1 mg IV every 4 hours as needed for severe pain as well as [place] 325 mg 1 tablet every 4 hours as needed for moderate pain and Robaxin 500 mg tablet every 8 hours as needed for muscle spasm as well as Neurontin 100 mg every 8 hours. The patient was sent for MRI of lumbar spine. PAST MEDICAL HISTORY: Hypertension. PAST SURGICAL HISTORY: Gallbladder removal, hysterectomy, tubal ligation, , hernia repair, appendectomy, bilateral shoulder and bilateral knee surgery, and eye surgery. MEDICATIONS: Lipitor, Lumigan, Cymbalta, Zestril, and Metamucil. ALLERGIES: No known drug allergies. SOCIAL HISTORY: Denies smoking tobacco, drinking alcohol, or IV drug abuse. REVIEW OF SYSTEMS: Denies rash, fever, chills, sweating, dizziness, drowsiness, blurred vision, sore throat, or change in her weight. No shortness of breath or chest pain. No nausea, vomiting, or blood in the stool or urine. No bowel or bladder incontinence. She is complaining of low back pain. PHYSICAL EXAMINATION: GENERAL: Alert, awake, and oriented x3. VITAL SIGNS: Blood pressure is 108/60, heart rate is 85, oxygen saturation 94%, and respiratory rate is 28. HEENT: PERRLA. NECK: Range of motion is full in all directions. No tenderness of cervical muscles. No adenopathy. LUNGS: Decreased breath sounds bilaterally. HEART: Regular. ABDOMEN: Obese. BACK: Range of motion is decreased in flexion and extension. No tenderness to paraspinal muscles. No tenderness to trapezius or rhomboid muscles. EXTREMITIES: Upper and lower extremity range of motion is full in all directions. No cyanosis. No clubbing. No edema. Sensory is intact. Reflexes are not obtainable. No adenopathy. ASSESSMENT AND PLAN: This is a 72-year-old female with lumbar herniated disc, lumbar degenerative disc disease, lumbar radiculopathy, muscle spasm, and morbid obesity. The patient will be continued on Dilaudid, Robaxin, Neurontin, and [place]. MRI of lumbar spine is pending. The patient was discussed with Dr. Perez and Dr. Perez concurred. We will follow the patient. Thank you very much for the courtesy of this consultation. Andreia Perez M.D. DUANE Decker DR: ELISEO JOB#: [id number] CC: FERNANDA
[2018-02-02] MEDS: Zolpidem 5mg tab ORAL PRN (21:29)
--- NOTE | 2018-02-02 23:28 | Cardiology Progress Note ---
Assessment/Plan Assessment/Plan 1. Sinus tachycardia, likely due to uncontrolled pain or dehydration. 2. Non-cardiac chest pain, no cardiac intervention necessary. Subjective Subjective Denies chest pain or SOB. Complains about low back pain. Objective Last 24 Hour Vital Signs Date Time Temp Pulse Resp B/P (MAP) Pulse Ox O2 Delivery O2 Flow Rate FiO2 02/02/18 20:00 98.7 98 20 135/80 (98) 96 02/02/18 16:00 97.7 67 18 118/63 (81) 99 02/02/18 11:35 98.2 86 22 133/77 (95) 97 02/02/18 10:19 80 134/78 (96) 02/02/18 09:00 Room Air 02/02/18 08:00 97.9 85 28 108/60 (76) 94 02/02/18 04:00 97.4 85 20 114/71 (85) 97 02/02/18 00:00 98.0 94 21 114/64 (81) 98 Intake and Output 02/01/18 02/02/18 18:59 06:59 Intake Total 360 ml 360 ml Balance 360 ml 360 ml Intake Oral 360 ml 360 ml # Voids 4 Laboratory Tests Test 02/02/18 05:20 White Blood Count 6.9 K/UL (4.8-10.8) Red Blood Count 5.05 M/UL (4.20-5.40) Hemoglobin 14.4 G/DL (12.0-16.0) Hematocrit 43.9 % (37.0-47.0) Mean Corpuscular Volume 87 FL (80-99) Mean Corpuscular Hemoglobin 28.6 PG (27.0-31.0) Mean Corpuscular Hemoglobin Concent 32.9 G/DL (32.0-36.0) Red Cell Distribution Width 12.4 % (11.6-14.8) Platelet Count 294 K/UL (150-450) Mean Platelet Volume 8.1 FL (6.5-10.1) Neutrophils (%) (Auto) 49.9 % (45.0-75.0) Lymphocytes (%) (Auto) 38.5 % (20.0-45.0) Monocytes (%) (Auto) 8.6 % (1.0-10.0) Eosinophils (%) (Auto) 1.9 % (0.0-3.0) Basophils (%) (Auto) 1.1 % (0.0-2.0) Sodium Level 138 MMOL/L (136-145) Potassium Level 4.3 MMOL/L (3.5-5.1) Chloride Level 103 MMOL/L (98-107) Carbon Dioxide Level 27 MMOL/L (21-32) Anion Gap 8 mmol/L (5-15) Blood Urea Nitrogen 14 mg/dL (7-18) Creatinine 0.8 MG/DL (0.55-1.30) Estimat Glomerular Filtration Rate > 60 mL/min (>60) Glucose Level 119 MG/DL (74-106) H Calcium Level 9.0 MG/DL (8.5-10.1) Total Bilirubin 0.5 MG/DL (0.2-1.0) Aspartate Amino Transf (AST/SGOT) 24 U/L (15-37) Alanine Aminotransferase (ALT/SGPT) 39 U/L (12-78) Alkaline Phosphatase 104 U/L (46-116) Total Protein 7.2 G/DL (6.4-8.2) Albumin 3.2 G/DL (3.4-5.0) L Globulin 4.0 g/dL Albumin/Globulin Ratio 0.8 (1.0-2.7) L Thyroid Stimulating Hormone (TSH) 0.451 uiU/mL (0.358-3.740) Objective General Appearance: mild distress - In pain Head: normocephalic, atraumatic Eyes: bilateral eye PERRL, bilateral eye EOMI ENT: normal pharynx Neck: supple, thyroid normal Respiratory: lungs clear Cardiovascular: regular rate, rhythm,normal S1S2, no murmurs, gallop or rubs. Gastrointestinal: non tender, soft, no mass Musculoskeletal: No edema, clubbing or cyanosis. Marcus Coronado MD Feb 02, 2018 23:28
[2018-02-03] VITALS: BP 116/67
[2018-02-03 04:00] VITALS: BP 137/76
[2018-02-03 07:16] LABS: ANION GAP 6 mmol/L (5-15); BLOOD UREA NITROGEN 10 mg/dL (7-18); CARBON DIOXIDE 31 MMOL/L (21-32); CHLORIDE 104 MMOL/L (98-107); CREATININE 0.7 MG/DL (0.55-1.30); POTASSIUM 4.4 MMOL/L (3.5-5.1); SODIUM 141 MMOL/L (136-145)
[2018-02-03 07:28] LABS: BASOPHILS % (AUTO) 0.9 % (0.0-2.0); EOSINOPHILS % (AUTO) 1.4 % (0.0-3.0); HEMATOCRIT 44.2 % (37.0-47.0); HEMOGLOBIN 14.7 G/DL (12.0-16.0); LYMPHOCYTES % (AUTO) 30.6 % (20.0-45.0); MEAN CORPUSCULAR VOLUME 86 FL (80-99); MONOCYTES % (AUTO) 7.5 % (1.0-10.0); NEUTROPHILS % (AUTO) 59.5 % (45.0-75.0); PLATELET COUNT 318 K/UL (150-450); RED BLOOD COUNT 5.15 M/UL (4.20-5.40); RED CELL DISTRIBUTION WIDTH 12.1 % (11.6-14.8); WHITE BLOOD COUNT 6.6 K/UL (4.8-10.8)
[2018-02-03 08:00] VITALS: BP 118/83
[2018-02-03] MEDS: DULoxetine 30mg cap ORAL SCH (08:14)
[2018-02-03] MEDS: Heparin 5000 units/ml inj SUBQ SCH (08:15)
[2018-02-03] MEDS: HYDROmorphone 1mg/ml Carpuject IVP PRN ×3 (08:16→16:50)
--- NOTE | 2018-02-03 08:46 | General Progress Note ---
Assessment/Plan Assessment/Plan (1) Lumbar Herniated disc (2) Lumbar Radiculopathy (3) Lumbar DDD (4) Lumbar Spondylosis (5) Muscle spasm (6) Morbid obesity Patient to be continued on Dilaudid and [place]. D/w Dr. Perez and he concurred. Subjective Date patient seen: Feb 03, 2018 Time patient seen: 07:00 - am Allergies: Coded Allergies: MORPHINE (Verified Allergy, Unknown, 05/02/17) Subjective REVIEW OF SYSTEMS: Denies rash, fever, chills, sweating, dizziness, drowsiness, blurred vision, sore throat, or change in her weight. No shortness of breath or chest pain. No nausea, vomiting, or blood in the stool or urine. No bowel or bladder incontinence. She is complaining of low back pain. SUBJECTIVE: Pain is well controlled and looking forward to being discharged home as per incident response engineer. MRI was reviewed. Objective Last 24 Hour Vital Signs Date Time Temp Pulse Resp B/P (MAP) Pulse Ox O2 Delivery O2 Flow Rate FiO2 02/03/18 04:00 98.2 92 20 137/76 (96) 98 02/03/18 00:00 98.7 90 20 116/67 (83) 100 02/02/18 21:00 Room Air 02/02/18 20:00 98.7 98 20 135/80 (98) 96 02/02/18 16:00 97.7 67 18 118/63 (81) 99 02/02/18 11:35 98.2 86 22 133/77 (95) 97 02/02/18 10:19 80 134/78 (96) 02/02/18 09:00 Room Air Intake and Output 02/02/18 02/03/18 19:00 07:00 Intake Total 1220 ml 250 ml Balance 1220 ml 250 ml Intake Oral 1220 ml 250 ml # Voids 3 2 Laboratory Tests 02/03/18 06:10: White Blood Count 6.6, Red Blood Count 5.15, Hemoglobin 14.7, Hematocrit 44.2, Mean Corpuscular Volume 86, Mean Corpuscular Hemoglobin 28.6, Mean Corpuscular Hemoglobin Concent 33.3, Red Cell Distribution Width 12.1, Platelet Count 318, Mean Platelet Volume 8.0, Neutrophils (%) (Auto) 59.5, Lymphocytes (%) (Auto) 30.6, Monocytes (%) (Auto) 7.5, Eosinophils (%) (Auto) 1.4, Basophils (%) (Auto ) 0.9, Sodium Level 141, Potassium Level 4.4, Chloride Level 104, Carbon Dioxide Level 31, Anion Gap 6, Blood Urea Nitrogen 10, Creatinine 0.7, Estimat Glomerular Filtration Rate > 60, Glucose Level 130H, Calcium Level 9.0 Height (Feet): 5 Height (Inches): 6.00 Weight (Pounds): 255 Objective GENERAL: Alert, awake, and oriented x3. LUNGS: Decreased breath sounds bilaterally. HEART: Regular. ABDOMEN: Obese. EXTREMITIES: No cyanosis. No clubbing. No edema. NEURO: No changes. Procedure: MRI L Spine no Contrast Indication: Back pain Technique: MRI examination of the lumbar spine was performed in a 1.5 [place] magnet. Sequences obtained include sagittal and axial T1 and T2 fast spin echo, and sagittal STIR. Comparison: none Findings: There is mild narrowing of L4-5 disc with mild concentric disc bulge at this level. Hypertrophied facets also noted at this level. There is mild narrowing of the neural foramen. There is no malalignment. The bone marrow signal is normal. The intervertebral discs appear normal otherwise. No paraspinous or paravertebral soft tissue mass versus , swelling or fluid collections are identified. Conus medullaris is seen at T12 and appears normal. IMPRESSION: Mild degenerative disc disease with concentric disc bulge at L4-5. Mild facet arthropathy at this level. Mild bilateral neural foraminal stenosis noted. Maninder Coombs Feb 03, 2018 08:46
--- NOTE | 2018-02-03 11:10 | Pulmonology Progress Note ---
Assessment/Plan Problems: (1) Intractable back pain (2) Unable to ambulate (3) Depression (4) Hypertension Assessment/Plan MRI reviewed: Mild degenerative disc disease with concentric disc bulge at L4-5. Mild facet arthropathy at this level. Mild bilateral neural foraminal stenosis noted. adjust pain meds monitor BP dvt prophylaxis pt doesn't want any surgery, since she had already 16 differently types of surgery. Subjective ROS Limited/Unobtainable: No Constitutional: Reports: no symptoms HEENT: Repors: no symptoms Respiratory: Reports: no symptoms Allergies: Coded Allergies: MORPHINE (Verified Allergy, Unknown, 05/02/17) Objective Last 24 Hour Vital Signs Date Time Temp Pulse Resp B/P (MAP) Pulse Ox O2 Delivery O2 Flow Rate FiO2 02/03/18 08:00 98.2 95 18 118/83 (95) 96 02/03/18 04:00 98.2 92 20 137/76 (96) 98 02/03/18 00:00 98.7 90 20 116/67 (83) 100 02/02/18 21:00 Room Air 02/02/18 20:00 98.7 98 20 135/80 (98) 96 02/02/18 16:00 97.7 67 18 118/63 (81) 99 02/02/18 11:35 98.2 86 22 133/77 (95) 97 Intake and Output 02/02/18 02/03/18 19:00 07:00 Intake Total 1220 ml 250 ml Balance 1220 ml 250 ml Intake Oral 1220 ml 250 ml # Voids 3 2 General Appearance: WD/WN HEENT: normocephalic Respiratory/Chest: chest wall non-tender, lungs clear Cardiovascular: normal peripheral pulses, normal rate Abdomen: normal bowel sounds, soft, non tender Genitourinary: normal external genitalia Extremities: no cyanosis Skin: no ulcers Neurologic/Psychiatric: hand bender II-XII grossly normal, no motor/sensory deficits Lymphatic: no neck adenopathy Laboratory Tests 02/03/18 06:10: White Blood Count 6.6, Red Blood Count 5.15, Hemoglobin 14.7, Hematocrit 44.2, Mean Corpuscular Volume 86, Mean Corpuscular Hemoglobin 28.6, Mean Corpuscular Hemoglobin Concent 33.3, Red Cell Distribution Width 12.1, Platelet Count 318, Mean Platelet Volume 8.0, Neutrophils (%) (Auto) 59.5, Lymphocytes (%) (Auto) 30.6, Monocytes (%) (Auto) 7.5, Eosinophils (%) (Auto) 1.4, Basophils (%) (Auto ) 0.9, Sodium Level 141, Potassium Level 4.4, Chloride Level 104, Carbon Dioxide Level 31, Anion Gap 6, Blood Urea Nitrogen 10, Creatinine 0.7, Estimat Glomerular Filtration Rate > 60, Glucose Level 130H, Calcium Level 9.0 Current Medications Medications (Trade) Dose Ordered Sig/Ernesto Route PRN Reason Start Time Stop Time Status Last Admin Dose Admin Acetaminophen (Tylenol) 650 mg Q4H PRN ORAL fever 02/01/18 13:00 03/03/18 12:59 Acetaminophen/ Hydrocodone Bitart ([place] ) 1 tab Q4H PRN ORAL For Moderate Pain 02/01/18 21:33 02/08/18 21:32 02/02/18 08:18 Al Hydroxide/Mg Hydroxide (Mylanta II) 30 ml Q6H PRN ORAL dyspepsia 02/01/18 13:00 03/03/18 12:59 Atorvastatin Calcium (Lipitor) 10 mg BEDTIME ORAL 02/01/18 21:00 03/03/18 20:59 02/02/18 21:29 Baclofen (Lioresal) 10 mg Q8H PRN ORAL muscle spasm 02/02/18 16:45 03/04/18 16:44 Dextrose (Dextrose 50%) 25 ml Q30M PRN IV Hypoglycemia 02/01/18 13:00 03/03/18 12:59 Dextrose (Dextrose 50%) 50 ml Q30M PRN IV Hypoglycemia 02/01/18 13:00 03/03/18 12:59 Duloxetine HCl (Cymbalta) 30 mg DAILY ORAL 02/02/18 09:00 03/04/18 08:59 02/03/18 08:14 Gabapentin (Neurontin) 300 mg Q8HR ORAL 02/02/18 22:00 03/03/18 21:59 02/03/18 05:44 Heparin Sodium (Porcine) (Heparin 5000 units/ml) 5,000 units EVERY 12 HOURS SUBQ 02/01/18 21:00 03/03/18 20:59 02/03/18 08:15 Hydromorphone HCl (Dilaudid) 1 mg Q4H PRN IVP Severe Pain (Pain Scale 7-10) 02/02/18 16:45 02/09/18 16:44 02/03/18 08:16 Lorazepam (Ativan 2mg/ml 1ml) 0.5 mg Q4H PRN IV For Anxiety 02/01/18 13:00 02/08/18 12:59 Ondansetron HCl (Zofran) 4 mg Q6H PRN IVP Nausea & Vomiting 02/01/18 13:00 03/03/18 12:59 Polyethylene Glycol (Miralax) 17 gm HSPRN PRN ORAL Constipation 02/01/18 13:00 03/03/18 12:59 Zolpidem Tartrate (Ambien) 5 mg HSPRN PRN ORAL Insomnia 02/01/18 13:00 02/08/18 12:59 02/02/18 21:29 Marcella Ang MD Feb 03, 2018 11:10
[2018-02-03 12:00] VITALS: BP 116/63
--- NOTE | 2018-02-03 13:24 | General Progress Note ---
Assessment/Plan Problem List: (1) The administrative codes within the IMO content you are accessing may have as of 01/04/2018. Please contact your IT Dept/Help Desk and request the latest Regulatory release be installed. IT Dept/Help Desk- Please refer to our FAQ page ([email or web address] or contact [facility] Customer Support at [email or web address] (2) Obese ICD Codes: E66.9 - Obesity, unspecified SNOMED: 528717587, 424497164 (3) Degenerative disc disease SNOMED: 60195545 (4) Unable to ambulate ICD Codes: R26.2 - Difficulty in walking, not elsewhere classified SNOMED: 587971576 (5) Weakness ICD Codes: R53.1 - Weakness SNOMED: 30091426 (6) Intractable back pain ICD Codes: M54.9 - Dorsalgia, unspecified SNOMED: 085831964 (7) Hypertension ICD Codes: I10 - Essential (primary) hypertension SNOMED: 81775837 Status: stable, progressing Assessment/Plan ot pt diet pain control abx dc w hh Subjective Constitutional: Reports: weakness Allergies: Coded Allergies: MORPHINE (Verified Allergy, Unknown, 05/02/17) All Systems: reviewed and negative except above Subjective sl back pain Objective Last 24 Hour Vital Signs Date Time Temp Pulse Resp B/P (MAP) Pulse Ox O2 Delivery O2 Flow Rate FiO2 02/03/18 12:00 97.7 88 18 116/63 (80) 95 02/03/18 11:38 Room Air 02/03/18 09:00 Room Air 02/03/18 08:00 98.2 95 18 118/83 (95) 96 02/03/18 04:00 98.2 92 20 137/76 (96) 98 02/03/18 00:00 98.7 90 20 116/67 (83) 100 02/02/18 21:00 Room Air 02/02/18 20:00 98.7 98 20 135/80 (98) 96 02/02/18 16:00 97.7 67 18 118/63 (81) 99 Intake and Output 02/02/18 02/03/18 19:00 07:00 Intake Total 1220 ml 250 ml Balance 1220 ml 250 ml Intake Oral 1220 ml 250 ml # Voids 3 2 Laboratory Tests 02/03/18 06:10: White Blood Count 6.6, Red Blood Count 5.15, Hemoglobin 14.7, Hematocrit 44.2, Mean Corpuscular Volume 86, Mean Corpuscular Hemoglobin 28.6, Mean Corpuscular Hemoglobin Concent 33.3, Red Cell Distribution Width 12.1, Platelet Count 318, Mean Platelet Volume 8.0, Neutrophils (%) (Auto) 59.5, Lymphocytes (%) (Auto) 30.6, Monocytes (%) (Auto) 7.5, Eosinophils (%) (Auto) 1.4, Basophils (%) (Auto ) 0.9, Sodium Level 141, Potassium Level 4.4, Chloride Level 104, Carbon Dioxide Level 31, Anion Gap 6, Blood Urea Nitrogen 10, Creatinine 0.7, Estimat Glomerular Filtration Rate > 60, Glucose Level 130H, Calcium Level 9.0 Height (Feet): 5 Height (Inches): 6.00 Weight (Pounds): 255 General Appearance: alert EENT: normal ENT inspection Neck: normal alignment Cardiovascular: normal peripheral pulses, normal rate, regular rhythm Respiratory/Chest: chest wall non-tender, lungs clear, normal breath sounds Abdomen: normal bowel sounds, non tender, soft Extremities: normal inspection Edema: no edema noted Arm (L), no edema noted Arm (R), no edema noted Leg (L), no edema noted Leg (R), no edema noted Pedal (L), no edema noted Pedal (R), no edema noted Generalized Neurologic: responsive, motor weakness Skin: normal pigmentation, warm/dry Leroy Serrano DO Feb 03, 2018 13:24
[2018-02-03 16:00] VITALS: BP 128/59
[2018-02-03] MEDS ORDERED: BACLOFEN10 MG ORAL (16:31)
--- NOTE | 2018-02-04 11:09 | Discharge Summary ---
Discharge Summary Discharge Summary _ DATE OF ADMISSION: 02/01/2018 DATE OF DISCHARGE: 02/02/2018 CONSULTANTS: Dr. Marcella Coronado BRIEF HOSPITAL COURSE: Patient is a 72-year-old female, who lives at home, presented to Ed due to increasing back pain for 3 days. There was no trauma. Pain was radiating to the left leg. Dull in nature with occasional shooting pain. The pain got so excruciating that patient presented to ED. She usually gets epidural injections on a regular basis. Last epidural was 2 weeks ago. Patient was unable to stand or ambulate. She denied any loss of control of bowel or urination. Denied any fever or chills. Denied any neck pain or photophobia. On evaluation at ED, vital signs were stable, blood work did not show any leukocytosis, hemoglobin and hematocrit were stable. CMP unremarkable. She was admitted for evaluation of intractable pain and inability to walk. She was seen by oil paint shader. Lumbar spine MRI showed a concentric disc bulge at L4-L5. She was given [place] and Dilaudid. She was placed on Robaxin and Neurontin. She had multiple surgeries in the past. Refused to have another surgery. She had sinus tachycardia, likely due to uncontrolled pain and dehydration. Patient did not have any chest pain or shortness of breath. No cardiac intervention was necessary. ST resolved. She was given PT and OT. She was eventually cleared for discharge home. FINAL DIAGNOSES: Intractable back pain due to herniated lumbar disc Inability to ambulate Hypertension Depression Lumbar spondylosis Lumbar degenerative disc disease Lumbar radiculopathy Morbid obesity Sinus tachycardia DISPOSITION: Home with home health. DISCHARGE MEDICATIONS: Refer to Discharge Medication List. DISCHARGE INSTRUCTIONS: Follow up within a week. I have been assigned to dictate discharge summary on this account, and I was not involved in the patient's management. Geraldine Jurado NP Feb 04, 2018 11:09
== END 2018-02-03 17:44 | disposition home health service (06) | DRG 552 ==
LOC: EDBD 11:41 → EMR 12:00 → 4E 12:08 → EDBEDREQ 12:27
DX: M51.16 Intervertebral disc disorders with radiculopathy, lumbar region (principal); N39.0 Urinary tract infection, site not specified; Z68.41 Body mass index [BMI] 40.0-44.9, adult; M47.816 Spondylosis without myelopathy or radiculopathy, lumbar region; Z88.6 Allergy status to analgesic agent; Z90.49 Acquired absence of other specified parts of digestive tract; R26.2 Difficulty in walking, not elsewhere classified; I10 Essential (primary) hypertension; E66.01 Morbid (severe) obesity due to excess calories; R00.0 Tachycardia, unspecified; M62.838 Other muscle spasm; M48.061 Spinal stenosis, lumbar region without neurogenic claudication
CPT/HCPCS: 36415; 71045; 72148; 80048; 80053; 81003; 82550; 82553; 84443; 84484; 85025; 93005; 96374; 96375; 96376; 99285; J2405